=== PATIENT | female | born 1950 | race Caucasian/White ===

== ENCOUNTER 2021-07-03 17:58 | Inpatient (IN) | payer OTHER, SELFPAY ==
[~2021-07-03] VITALS: Ht 165.1 cm; Wt 84.0 kg
--- NOTE | 2021-07-03 18:00 | NUR ---
Pt taken to bed 6
--- NOTE | 2021-07-03 18:03 | NUR ---
Patient being evaluated by physician at bedside.
[2021-07-03 18:07] VITALS: BP 154/92
--- NOTE | 2021-07-03 18:07 | NUR ---
70 y/o F BIBA for abdominal x today. Pain is sharp and 10/10. +N, -V/D. abd is soft and tender to touch. + BS x 4. aox 4 able to make all needs known. all other systems WNL. Denies CP. Pmhx: Fibromyalgia Allergies: Ciprofloxacin, sulfa drugs, PCNs, demerol
--- NOTE | 2021-07-03 18:07 | NUR ---
ERMD at bedside to assess pt
[2021-07-03] MEDS ORDERED: MORPHINE SULFATE 4 MG/ML SYR IVP ONE ×2 (18:10→20:10)
[2021-07-03] MEDS ORDERED: ONDANSETRON 4 MG/2 ML VIAL IVP ONE (18:15)
--- NOTE | 2021-07-03 18:20 | NUR ---
Lab at bedside taking blood
--- NOTE | 2021-07-03 18:22 | NUR ---
Pt signed consent for CT with contrast
[2021-07-03 19:11] LABS: ALBUMIN 3.9 g/dL (3.4-5.0); BASOPHILS # (AUTO) 0.1 K/uL (0.00-0.22); BASOPHILS % (AUTO) 0.4 % (0.0-2.0); BILIRUBIN,DIRECT 0.1 mg/dL (0.0-0.3); EOSINOPHILS # (AUTO) 0.3 K/uL (0-0.4); EOSINOPHILS % (AUTO) 1.6 % (0.0-4.0); HEMATOCRIT 41.7 % (36-48); HEMOGLOBIN 13.7 g/dL (12.0-16.0); LYMPHOCYTES % (AUTO) 12.2 % (20.5-51.1); MEAN CORPUSCULAR HEMOGLOBIN 29 pg (27-31); MEAN CORPUSCULAR HGB CONC 33 g/dL (33-37); MEAN CORPUSCULAR VOLUME 87.2 fL (80-94); MONOCYTES # (AUTO) 0.8 K/uL (0.8-1.0); MONOCYTES % (AUTO) 5.1 % (1.7-9.3); NEUTROPHILS # (AUTO) 13.1 K/uL (1.8-7.7); NEUTROPHILS % (AUTO) 80.7 % (42.2-75.2); PLATELET COUNT (AUTO) 265 K/uL (140-450); RED BLOOD CELL COUNT(AUTO) 4.78 MIL/uL (4.20-5.40); RED CELL DISTRIBUTION WIDTH 16.2 % (11.6-13.7); TOTAL BILIRUBIN 0.4 mg/dL (0.0-1.0); WHITE BLOOD COUNT (AUTO) 16.3 K/uL (4.8-10.8)
--- NOTE | 2021-07-03 19:11 | NUR ---
[facility] called and made aware of CT orders. consent signed
--- NOTE | 2021-07-03 19:25 | NUR ---
Received report from Ai HOBSON for continuity of care
--- NOTE | 2021-07-03 19:25 | NUR ---
Pt report given to Quyen RN. Transfer of care at this time.
--- NOTE | 2021-07-03 19:44 | NUR ---
Patient appears to be resting comfortably in bed- semi fowlers with eyes closed. Vital Signs within normal limits. Respirations even and unlabored. Patient does complain of pain of 8/10--ERMD made aware. Safety measures are in place, placed on dryer feeder, and will continue to monitor patient.
[2021-07-03 20:24] LABS: ANION GAP 16.1 (8-16); CARBON DIOXIDE 25.6 mmol/L (21-32); CHLORIDE 101 mmol/L (98-107); CREATININE 0.9 mg/dL (0.6-1.3); GLUCOSE 140 mg/dL (74-106); POTASSIUM 3.7 mmol/L (3.5-5.1); SODIUM SERUM 139 mmol/L (136-145); UREA NITROGEN, BLOOD 24 mg/dL (7-18)
--- NOTE | 2021-07-03 21:11 | NUR ---
PT TAKEN TO CT
--- NOTE | 2021-07-03 21:26 | NUR ---
PT RETURNED FROM CT
--- NOTE | 2021-07-03 21:33 | NUR ---
patient able to ambulate to the bathroom for urine collection
--- NOTE | 2021-07-03 21:45 | NUR ---
patient unable to provide urine, c/o not being relaxed enough. ERMD- made aware.
--- NOTE | 2021-07-03 21:46 | NUR ---
hooked patient back up on monitors, safety measures are in place, and will continue to monitor patient.
--- NOTE | 2021-07-03 22:19 | NUR ---
Patient tele hold in the ER admited to Ruddy Fox
[2021-07-03] MEDS ORDERED: DEXT 5% /NACL 0.9% 1,000 ML IV SCH (22:20)
--- NOTE | 2021-07-03 22:45 | NUR ---
ATTEMPTED TO PLACE AN NG TUBE-- UNSUCCESSFUL, PATIENT WENT AGAINST RESISTANCE AND HAD THE TUBE COIL INSIDE AND AROUND HER MOUTH.
[2021-07-03] MEDS ORDERED: guaiFENesin DM 200/20 MG-10 ML 10 ML UDC PO PRN (23:00)
[2021-07-03] MEDS ORDERED: HYDROcodone/APAP 7.5/325 MG 1 TAB PO PRN (23:00)
[2021-07-03] MEDS ORDERED: LEVOFLOXACIN 750 MG/D5W PREMIX 150 ML IV SCH (23:05)
[2021-07-03] MEDS ORDERED: hydrALAZINE 20 MG/ML VIAL IVP PRN (23:05)
--- NOTE | 2021-07-03 23:08 | NUR ---
CALLED MD JARQUIN FOR ORDERS FOR ANXIETY-- RECEIVED ORDERS FOR 2MG ATIVAN IVP BEFORE NG INSERTION AND 1 MG OF MORHPINE IVP BEFORE NG INSERTION. AN ADDITIONAL ORDER OF 1MG IVP Q8 PRN FOR ANXIETY AND RESTLESSNESS.
[2021-07-03] MEDS ORDERED: MORPHINE SULFATE 2 MG/ML SYR IVP PRN (23:15)
[2021-07-03 23:37] LABS: CHOL/HDL RATIO 3.3 (1-4.5); FREE T4 (FREE THYROXINE) 0.82 ng/dL (0.76-1.46); MAGNESIUM 2.2 mg/dL (1.8-2.4); PHOSPHORUS 4.3 mg/dL (2.5-4.9); THYROID STIMULATING HORMONE 3.44 uIU/mL (0.34-3.74)
[2021-07-03] MEDS ORDERED: MORPHINE SULFATE 2 MG/ML SYR ONE (23:38)
[2021-07-03] MEDS ORDERED: LORazepam 2 MG/ML VIAL ONE (23:39)
[2021-07-03 23:59] LABS: PROTHROMBIN TIME 9.7 secs (10.8-13.4)
--- NOTE | 2021-07-04 00:24 | NUR ---
attempted to re-insert NG tube-- patient cannot tolerate NG tube. Xray was at bedside and was able to attempt a picture-- saw that ng tube was in the right lung and coiling in the esophagus. Patient saturation went down to 79% on RA. Immediately took out NG tube and put Oxygen to 4L NC bringing patient saturation up to 93%. Immediately called Ruddy Thomas.
--- NOTE | 2021-07-04 00:29 | NUR ---
Called MD Teague about another attempt on NG tube insertion-- notified and said if patient cannot tolerate NG tube then pay close attention to VS and if they become unstable call surgeon for surgery. also reported to avoid morphine as much as possible. Charge nurse and MT notified.
[2021-07-04] MEDS: LEVOFLOXACIN 750 MG/D5W PREMIX 150 ML IV SCH (02:16)
[2021-07-04] MEDS: LORazepam 2 MG/ML VIAL IVP PRN ×3 (02:22→13:49)
[2021-07-04] MEDS: ZOLPIDEM 5 MG TAB PO PRN (02:35)
[2021-07-04] MEDS: DEXT 5% /NACL 0.9% 1,000 ML IV SCH ×3 (03:50→14:00)
[2021-07-04] MEDS ORDERED: VENL37.55 PO (06:31)
[2021-07-04] MEDS ORDERED: POTA10TE30 PO (06:31)
[2021-07-04] MEDS ORDERED: GABA100C PO (06:31)
[2021-07-04] MEDS ORDERED: GABA400C PO (06:31)
[2021-07-04] MEDS ORDERED: FERR325E14 PO (06:31)
[2021-07-04] MEDS ORDERED: DULO60EC1 PO (06:31)
[2021-07-04] MEDS ORDERED: SYN.05 PO (06:31)
[2021-07-04] MEDS ORDERED: VENL150C1 PO (06:31)
[2021-07-04] MEDS ORDERED: FURO-572 PO (06:36)
--- NOTE | 2021-07-04 07:21 | NUR ---
Pt report given to Burak HOBSON. Transfer of care at this time.
--- NOTE | 2021-07-04 07:21 | NUR ---
Report and continuation of care received from JAZLYN Napier.
[2021-07-04 07:22] LABS: ANION GAP 16.9 (8-16); CARBON DIOXIDE 22.7 mmol/L (21-32); CHLORIDE 100 mmol/L (98-107); GLUCOSE 157 mg/dL (74-106); POTASSIUM 4.6 mmol/L (3.5-5.1); SODIUM SERUM 135 mmol/L (136-145); UREA NITROGEN, BLOOD 24 mg/dL (7-18)
[2021-07-04 07:34] LABS: BASOPHILS % (AUTO) 0.2 % (0.0-2.0); EOSINOPHILS # (AUTO) 0.1 K/uL (0-0.4); EOSINOPHILS % (AUTO) 0.3 % (0.0-4.0); HEMATOCRIT 45.1 % (36-48); HEMOGLOBIN 14.7 g/dL (12.0-16.0); LYMPHOCYTES # (AUTO) 0.9 K/uL (2.5-16.5); LYMPHOCYTES % (AUTO) 6.1 % (20.5-51.1); MEAN CORPUSCULAR HEMOGLOBIN 29 pg (27-31); MEAN CORPUSCULAR HGB CONC 33 g/dL (33-37); MEAN CORPUSCULAR VOLUME 88.4 fL (80-94); MONOCYTES # (AUTO) 1.1 K/uL (0.8-1.0); MONOCYTES % (AUTO) 7.6 % (1.7-9.3); NEUTROPHILS # (AUTO) 12.7 K/uL (1.8-7.7); NEUTROPHILS % (AUTO) 85.8 % (42.2-75.2); PLATELET COUNT (AUTO) 295 K/uL (140-450); RED BLOOD CELL COUNT(AUTO) 5.11 MIL/uL (4.20-5.40); RED CELL DISTRIBUTION WIDTH 16.5 % (11.6-13.7); WHITE BLOOD COUNT (AUTO) 14.9 K/uL (4.8-10.8)
--- NOTE | 2021-07-04 07:39 | NUR ---
Patient states unable to void at this time. Will try later.
--- NOTE | 2021-07-04 08:27 | NUR ---
JUAN, PT GRANDDAUGHTER FOR PT UPDATES.
[2021-07-04] MEDS: PANTOPRAZOLE 40 MG TABEC PO SCH (09:25)
--- NOTE | 2021-07-04 09:40 | NUR ---
SPOKE WITH PT FOR PT UPDATES.
--- NOTE | 2021-07-04 09:41 | NUR ---
DR. JARQUIN AT PT BEDSIDE FOR FURTHER UPDATES.
--- NOTE | 2021-07-04 09:44 | NUR ---
Dr. Teague is evaluating patient at bedside
--- NOTE | 2021-07-04 09:45 | NUR ---
Dr. Teague advised to withhold Morphine and [place] medications and give Toradol IVP.
[2021-07-04] MEDS: KETOROLAC 15 MG/ML VIAL IVP PRN ×2 (10:28→17:53)
--- NOTE | 2021-07-04 12:00 | NUR ---
Patient assisted to restroom by wheelchair and cane. Patient unable to void, reports "prolapsed bladder, I need a tranquilizer in order to relax my muscles to pee. They have tried to put in a catheter in the past and they can't get it." Patient refusing straight catheter at this time.
--- NOTE | 2021-07-04 12:14 | NUR ---
Pt placed back onto environmental monitoring technician. New sheets, gown and chucks applied. All pt needs met.
--- NOTE | 2021-07-04 13:37 | NUR ---
GIVEN TELEPHONE ORDER BY DR. JARQUIN TO INPUT ATIVAN 1MG TO BE GIVEN Q6H PRN FOR AGITATION AND ANXIETY.
--- NOTE | 2021-07-04 14:35 | NUR ---
Patient provided with water soluable jelly to moisten lips. Repositioned in bed per request. All pt needs met.
--- NOTE | 2021-07-04 15:29 | NUR ---
Patient laying on Right side in low-fowlers position. shelter monitor and IVF continued. SpO2 97% on 2L NC. Bed locked in lowest position, side rails x 1, call light in reach.
--- NOTE | 2021-07-04 15:35 | NUR ---
Pt states 10/10 pain with nausea. PRN orders to be given. Emesis bag provided
[2021-07-04] MEDS: ONDANSETRON 4 MG/2 ML VIAL IM/IVP PRN ×2 (15:45→23:38)
--- NOTE | 2021-07-04 16:30 | NUR ---
Patient provided with water soluable jelly to moisten lips. All pt needs met. Unable to obtain urine sample at this time. Patient states when she feels anxious, she can not urinate.
--- NOTE | 2021-07-04 17:52 | NUR ---
Patient states she needs to urinate. Patient assisted by WC and cane to restroom and top hat placed on toilet.
--- NOTE | 2021-07-04 18:03 | NUR ---
Patient voided 400mL yellow urine. UA collected, walked to lab and handed to CPT. Emmie
--- NOTE | 2021-07-04 18:05 | NUR ---
Patient placed back onto resident surgeon and IVF. Minor pain relief after Toradol 15mg IVP; states "8.5."
[2021-07-04 18:47] LABS: APPEARANCE,URINE CLEAR (CLEAR); BILIRUBIN,URINE NEGATIVE (NEGATIVE); BLOOD, URINE NEGATIVE (NEGATIVE); COLOR,URINE YELLOW (YELLOW); LEUKOCYTE ESTERASE ,URINE NEGATIVE (NEGATIVE); NITRITE, URINE NEGATIVE (NEGATIVE); PH,URINE 5.5 (5.0-9.0); UGLUCOSE NEGATIVE (NEGATIVE)
[2021-07-04 19:04] LABS: BARBITURATE, URINE NEGATIVE ng/ml (NEG <=200); BENZODIAZEPINE, URINE POSITIVE ng/mL (NEG <=200); CANNABINOID, URINE NEGATIVE ng/mL (NEG <=50); COCAINE, URINE NEGATIVE ng/mL (NEG <=300); OPIATE, URINE POSITIVE ng/mL (NEG <=2000); PHENCYCLIDINE SCREEN,URINE NEGATIVE ng/mL (NEG <=25)
--- NOTE | 2021-07-04 19:18 | NUR ---
Report and transfer of care endorsed to JAZLYN Mcclure.
--- NOTE | 2021-07-04 19:30 | NUR ---
ASSUMED CARE OF PATIENT AT THIS TEIM.
--- NOTE | 2021-07-05 00:09 | NUR ---
REPORT GIVEN TO SRAVANI HOBSON AT THIS TIME. CLEARED FOR TELE TRANSFER TO BED 121A
[2021-07-05 00:30] VITALS: BP 112/71
[2021-07-05] MEDS: DEXT 5% /NACL 0.9% 1,000 ML IV SCH ×4 (03:39→21:11)
[2021-07-05 04:00] VITALS: BP 110/70
[2021-07-05 06:03] LABS: BASOPHILS % (AUTO) 0.1 % (0.0-2.0); EOSINOPHILS # (AUTO) 0.1 K/uL (0-0.4); EOSINOPHILS % (AUTO) 0.8 % (0.0-4.0); HEMATOCRIT 40.4 % (36-48); HEMOGLOBIN 13.1 g/dL (12.0-16.0); LYMPHOCYTES # (AUTO) 1.8 K/uL (2.5-16.5); LYMPHOCYTES % (AUTO) 13.7 % (20.5-51.1); MEAN CORPUSCULAR HEMOGLOBIN 29 pg (27-31); MEAN CORPUSCULAR HGB CONC 33 g/dL (33-37); MEAN CORPUSCULAR VOLUME 88.8 fL (80-94); MONOCYTES # (AUTO) 1.1 K/uL (0.8-1.0); MONOCYTES % (AUTO) 8.3 % (1.7-9.3); NEUTROPHILS # (AUTO) 10.3 K/uL (1.8-7.7); NEUTROPHILS % (AUTO) 77.1 % (42.2-75.2); PLATELET COUNT (AUTO) 300 K/uL (140-450); RED BLOOD CELL COUNT(AUTO) 4.55 MIL/uL (4.20-5.40); RED CELL DISTRIBUTION WIDTH 16.1 % (11.6-13.7); WHITE BLOOD COUNT (AUTO) 13.4 K/uL (4.8-10.8)
--- NOTE | 2021-07-05 06:20 | NUR ---
PATIENT HAS BEEN SCREENED AND CATEGORIZED MODERATE NUTRITION RISK. PATIENT WILL BE SEEN WITHIN 3-5 DAYS OF ADMISSION. 07/06/21 07/08/[address]
[2021-07-05] MEDS: KETOROLAC 15 MG/ML VIAL IVP PRN ×3 (06:35→18:18)
[2021-07-05] MEDS: LORazepam 2 MG/ML VIAL IVP PRN (06:35)
[2021-07-05 06:40] LABS: ANION GAP 13.7 (8-16); CARBON DIOXIDE 25.6 mmol/L (21-32); CHLORIDE 103 mmol/L (98-107); CREATININE 1.3 mg/dL (0.6-1.3); GLUCOSE 116 mg/dL (74-106); POTASSIUM 4.3 mmol/L (3.5-5.1); SODIUM SERUM 138 mmol/L (136-145); UREA NITROGEN, BLOOD 27 mg/dL (7-18)
--- NOTE | 2021-07-05 07:25 | NUR ---
RECEIVED REPORT FROM WOVEN BLIND LOOM TENDER NURSE. PT STABLE. NO S/S OF DISTRESS. BREATHING SYMMETRICAL. NC AT 2L. IV RUNNING PER MD ORDERS. CALL LIGHT IN REACH. ALL SAFETY MEASURES IN PLACE.
[2021-07-05 08:00] VITALS: BP 98/52
[2021-07-05 08:08] LABS: T4 (THYROXINE) 6.8 ug/dL (4.5-12.0)
--- NOTE | 2021-07-05 08:17 | NUR ---
PATIENT EDUCATED ON ORDER FOR NG TUBE. PT STATES SHE HAS STRONG ESOPHAGUS AND ITS IS VERY PAINFUL FOR HER TO HAVE AN NG TUBE. PT REFUSED AT THIS TIME, PT EDUCATED AND NEEDS REINFORCEMENT.
[2021-07-05] MEDS: PANTOPRAZOLE 40 MG TABEC PO SCH (08:19)
--- NOTE | 2021-07-05 09:30 | NUR ---
PATIENT TAKEN TO RADIOLOGY VIA WHEELCHAIR BY TECH. CANE IN POSSESSION. INFORMED PATIENT OF PROCEDURE. PT VERBALIZED UNDERSTANDING.
--- NOTE | 2021-07-05 11:14 | NUR ---
SPOKE TO MARINA ( REGARDING PLAN OF CARE. VERBALIZED UNDERSTANDING AND STATES HE WILL VISIT SOON . PT RESTING IN BED EYES CLOSED BED ALARM NUMERICAL CONTROL DRILL PRESS OPERATOR LIGHT WITHIN REACH . ALL PERSONAL ITEMS WITHIN REACH. ALL SAFETY MEASURES IN PLACE.
[2021-07-05 12:00] VITALS: BP 98/62
[2021-07-05] MEDS: ONDANSETRON 4 MG/2 ML VIAL IM/IVP PRN (12:35)
--- NOTE | 2021-07-05 12:51 | NUR ---
PT REPORTED PAIN AND NAUSEA. PT MEDICATED FOR PAIN AND NAUSEA. EDUCATED ON MEDICATIONS GIVEN. PATIENT VERBALIZED UNDERSTANDING. PT SPOUSE AT BEDSIDE. PT CHANGED INTO YELLOW SOCKS AND GOWN, AND GIVEN ID BRACELET PER PROTOCOL. CALL LIGHT IN REACH. ALL SAFETY MEASURES IN PLACE.
--- NOTE | 2021-07-05 14:50 | NUR ---
PT ROUNDED ON . PT RESTING IN BED ON HER RIGHT SIDE. EYES CLOSED, BREATHING SYMMETRICAL UNLABORED. NEXT TO HER. CALL LIGHT ON , PATIENTS BELONGINGS WITHIN REACH . ALL SAFETY MEASURES ARE IN PLACE.
--- NOTE | 2021-07-05 15:05 | NUR ---
DC PLANNING: AYAN SPOKE WITH THE PATIENT AND HER ABRIL AT BEDSIDE. CONFIRMED THEIR ADDRESS AND PHONE NUMBER PER THE FACE SHEET. THE PATIENT LIVES IN A SINGLE STORY HOUSE WITH HER ABRIL WHO IS HER PRIMARY CAREGIVER. THE PATIENT HAS A H/O LUPUS AND HIP AND KNEE REPLACEMENT. SHE SEES HER PCP ON AN NEEDED BASIS AND SEES HER PAIN MANAGEMENT MD DR RICHARDS EVERY 3 MONTHS. SHE REQUIRES ASSISTANCE WITH BATHING AND DRESSING AND IS ABLE TO WALK SHORT DISTANCES USING A CANE. SHE ALSO HAS A 3 IN 1 COMMODE, AND HAS BEEN AT [facility] FOR REHAB AFTER HER KNEE SURGERY. THE PATIENT HAS NOT HAD HOME HEALTH IN THE PAST. SHE IS IN THE PROCESS OF HAVING AN ABDOMINAL XRAY SERIES WITH SMALL BOWEL FOLLOW THROUGH TO DETERMINE IF THE PATIENT HAS AN SBO VS ILEUS. DC PLAN WILL BE DETERMINED AFTER DIAGNOSTIC W/U IS COMPLETED. AYAN WILL FOLLOW FOR NEEDS. Addendum: 07/11/21 at 1419 by Gini Vega CM DC PLANNING: THE PATIENT IS S/P SURGERY FOR SBO, REMAINS WITH NIRANJAN DRAIN, O2 AT 10 L AND LEUKOCYTOSIS. ID CONSULT WITH DR GRAVES, THE PATIENT WAS STARTED ON MEREM IV. ORDER FOR LTAC EVALUATION RECEIVED, AYAN CALLED THE PATIENTS HEATHER TO DISCUSS. HE STATES HE'S IN AGREEMENT AND WANTS CM TO SPEAK WITH HIS ONCE A DECISION IS MADE BY LTAC AND INSURANCE TO TRANSFER PATIENT. REFERRAL FAXED TO [facility], AYAN WILL FOLLOW FOR NEEDS. Addendum: 07/12/21 at 1550 by Tami Isaac RN DC PLANNING: CALLED [facility] [phone] SPOKE WITH ORBERT Parada CASE DAMAGE ASSESSOR, PROVIDE THE AUTH FOR [facility] [id number] AND STATED NO AUTH NEEDED FOR TRANSPORT. CALLED ALISSA AND PROVIDE THE AUTH # FOR [facility]. AWAITING FOR BED. CM TO FOLLOW Addendum: 07/12/21 at 1636 by Tami Isaac RN DC PLANNING: ARRANGE TRANSPORT WITH [facility] PENDING ROOM NUMBER AT [facility] PLACE IT WILL CALL. PLS CALL [facility] [phone] OR [phone].CM TO FOLLOW Addendum: 07/13/21 at 1624 by Gini Vega CM DC PLANNING: AYAN FOLLOWED UP WITH ALISSA FROM [facility], NO BEDS AVAILABLE YET. AYAN ALSO FAXED UPDATED CLINICALS TO [facility] INS[facility]ANCE PER THEIR REQUEST. THE PATIENTS HEATHER WAS UPDATED ON KINDREDS LACK OF BEDS TODAY. AYAN WILL FOLLOW FOR NEEDS. Addendum: 07/14/21 at 1253 by Gini Vega CM DC PLANNING: AYAN RECEIVED A CALL FROM MATT [facility] HEALTH COORDINATOR AT [facility]. MATT OFFERED A PEER TO PEER CONVERSATION REGARDING APPROVAL FOR THE PATIENT TO GO TO LTAC, AYAN ENDOSED THAT AN AUTH NUMBER HAS BEEN RECEIVED. MATT STATES THAT SHE WILL NEED TO ESCALATE THE CASE THE AUTH NUMBER WE HAVE IS NOT THE NUMBER ATTACHED TO THE PATIENTS CASE, PEER TO PEER PHONE NUMBER IS [phone] JENNIFER SLADE. MATT'S NUMBER IS [phone], SHE WOULD LIKE TO ESCALATE CASE BEFORE PEER TO PEER IS INITIATED TO SEE IF IT IS NECESSARY. AYAN ALSO MET WITH THE PATIENT AND HER HEATHER AT BEDSIDE TO DISCUSS [facility] PLACEMENT. THE PATIENT IS VERY EMOTIONAL AND WANTS TO DC HOME, CM AND EXPLAINED THAT SHE COULD NOT BE CARED FOR APPROPRIATELY AT HOME EVEN WITH A MANAGER STORY RETAIL AGENT. THE PATIENT ACKNOWLEDGES THAT ALISSA FROM [facility] SPOKE TO HER IN PERSON, AND ULTIMATELY AGREED TO GO TO [facility] SHE UNDERSTANDS THAT IT IS THE SETTING THAT CAN MANAGE HER CURRENT HEALTH ISSUES AND CARE. AYAN WILL ASK ALISSA TO VISIT THE PATIENT AGAIN PER HER REQUEST BUT SHE WOULD LIKE TO WAIT UNTIL SATURDAY IF SHE DOESN'T DC OVER THE WEEKEND. CM WILL FOLLOW FOR NEEDS. Addendum: 07/14/21 at 1405 by Gini Vega DC PLANNING: AYAN RECEIVED A CALL FROM MATT AT [facility], STATES A PEER TO PEER REVIEW IS NEEDED FOR LTAC AUTHORIZATION. HAS UNTIL 12 NOON ON SATURDAY THE TO CALL THE [facility] , REFERENCE # IS [id number], PRIOR REFERENCE NUMBERS HAVE BEEN CANCELLED BY [facility]. HOSPITALIST MADE AWARE AND STATES HE WILL CALL FOR PEER TO PEER NOW. CM WILL FOLLOW FOR NEEDS. Addendum: 07/14/21 at 1514 by Gini Vega DC PLANNING: DR CALHOUN SPOKE WITH DR JENNIFER SLADE AT [facility] WHO DENIED LTAC ADMISSION FOR THE PATIENT. AYAN THEN SPOKE WITH PETE AT [facility] AND ASKED FOR SNF OPTIONS AND AN EXPLANATION OF THE AUTHORIZATION PROCESS. PTEE STATES THAT CLINICALS NEED TO BE FAXED TO [employer] AT [phone], AND THAT REQUEST WILL NOT BE REVIEWED UNTIL SATURDAY. SNF OPTIONS ARE [facility], [facility], [facility], [facility], [facility], [facility], [facility], [facility], [facility] AND [facility]. AYAN THEN SPOKE WITH THE ATTENDING MD DR. CALHOUN TO UPDATE HIM ON ABOVE. AYAN SPOKE WITH THE PATIENTS WHO STATES THAT THE PATIENT WILL NOT AGREE TO SNF, PLAN IS TO DC HOME WITH HOME HEALTH FOR P.T. AND WOUND CARE. THE COUPLES GRANDDAUGHTER LIVES NEXT DOOR TO THEM AND WILL BE ABLE TO HELP WITH THE PATIENTS CARE. AYAN WILL FOLLOW FOR NEEDS. Addendum: 07/14/21 at 1634 by Gini Vega CM DC PLANNING: CLINICAL PACKET FAXED TO [facility] WITH ORDERS FOR SNF PLACEMENT VERSUS HOME HEALTH. AYAN WILL FOLLOW FOR NEEDS. Addendum: 07/17/21 at 1116 by Gini Vega CM DC PLANNING: AYAN SPOKE WITH THE PATIENTS THIS MORNING, HE IS IN AGREEMENT WITH THE PATIENT DC'ING HOME WITH HOME HEALTH. AYAN ENDORSED THAT SHE SPOKE WITH [facility] THIS MORNING TO GET A LIST OF CONTRACTED HOME HEALTH AGENCIES, HEATHER IS IN AGREEMENT WITH SENDING TO [facility] [employer] [facility] THE PATIENT HAS NO PRIOR HISTORY OF USING ANOTHER AGENCY. REFERRAL SENT TO [facility] FOR SAFETY EVAL AND PHYSICAL THERAPY. AYAN ALSO ENDORSED TO HER HEATHER THAT THE PATIENT MIGHT DC TODAY. AYAN WILL FOLLOW FOR NEEDS.
--- NOTE | 2021-07-05 15:54 | NUR ---
PATIENT REPOSITIONED AND GIVEN ICE PACKS. PT RESTING IN BED STAND BY ASSISTANCE. ALL SAFETY MEASURE ARE IN PLACE.
[2021-07-05 16:00] VITALS: BP 108/82
--- NOTE | 2021-07-05 17:50 | NUR ---
ASSISTED PT TO RESTROOM. PATIENT HAS UNSTEADY GAIT. PT DID NOT VOID. OFFERED BEDPAN, PT REFUSED. OFFERED TO BRING BEDSIDE COMMODE FOR NEXT ATTEMPT AT VOIDING. ASSISTED PT BACK TO BED. CALL LIGHT IN REACH. ALL SAFETY MEASURES IN PLACE.
--- NOTE | 2021-07-05 18:20 | NUR ---
PATIENT EDUCATED THAT PATIENT MUST VOID IN ORDER TO COMPLETE SMALL BOWEL THROUGH , TOILET TRAINING COMPLETE BUT WAS UNSUCCESSFUL
--- NOTE | 2021-07-05 18:30 | NUR ---
PATIENT COMPLAINS OF PAIN , PRN MEDICATION GIVEN , PT GIVEN ICE AND REPOSITIONING . PT STATES SHE IS ANXIOUS BREATHING EXERCISES PERFORMED AND EDUCATED TO CALL FOR ANYTHING\. CALL LIGHT WITHIN REACH
--- NOTE | 2021-07-05 19:37 | NUR ---
PT ENDORSED TO STUDIO ASSOCIATE NURSE. SPOUSE AT BEDSIDE. PT STABLE. PATIENT STATED REDUCED PAIN AND NAUSEA AFTER THERAPEUTIC MEASURES. CALL LIGHT IN REACH. ALL SAFETY MEASURES IN PLACE.
[2021-07-05 20:00] VITALS: BP 139/85
--- NOTE | 2021-07-05 21:00 | NUR ---
Attempted to assist patient to bedside commode so she can void but was unsuccessful. Provided Patient education on the need to void but patient stated it was because she was just anxious and would like her Ativan IV PUSH. Ativan was then provided to the patient. Provided further education on the possibility of strait cath but patient refused saying she needed more time.
[2021-07-05] MEDS: metroNIDAZOLE 500 MG/NS PREMIX 100 ML IV SCH (21:05)
--- NOTE | 2021-07-05 23:30 | NUR ---
Contacted doctor BRITTON about patient problem with urination and the need for the radiological procedure that could not be completed to the patient's full bladder. MD gave an order for a strait cath to empty the bladder will follow order.
[2021-07-06] VITALS (9 sets, daily range): BP systolic 98–136; BP diastolic 54–85
--- NOTE | 2021-07-06 | NUR ---
Patient had x2 episodes of emesis within a 30 minute period. Patient had an output 700ml of coffee brown emesis. Patient was promptly clean and given a zofran for nausea and vomiting. Patient is having no other s/s of distress and V/S are stable at this time. Will continue to monitor. Discussed with the patient Order that was provided by doctor JARQUIN about straight Cath procedure but patient stated not right now. Risk and benefits were explained and patient verbalized understanding.
[2021-07-06] MEDS: ONDANSETRON 4 MG/2 ML VIAL IM/IVP PRN ×3 (00:05→09:50)
--- NOTE | 2021-07-06 01:30 | NUR ---
Patient is currently resting with no further episodes of N/V at this time, Patient has still not voided.
[2021-07-06] MEDS: LEVOFLOXACIN 750 MG/D5W PREMIX 150 ML IV SCH (02:13)
--- NOTE | 2021-07-06 02:30 | NUR ---
Administered scheduled ABX at this time and patient was experiencing N/V but no emesis was present. Ask the patient if she had voided and patient stated that she went a little bit. Ask the patient about strait cath again and patient refused, stating that it was because she had not had anything to drink. education was provided on the IV fluid being administered continuously and the effects on the system and risk and benefits patient still refused. Will continue to observe.
--- NOTE | 2021-07-06 03:15 | NUR ---
Patient stated that they were experiencing anxiety and requested Ativan. Some nausea was still present no emesis at this time.
[2021-07-06] MEDS: LORazepam 2 MG/ML VIAL IVP PRN ×2 (03:22→11:21)
--- NOTE | 2021-07-06 04:00 | NUR ---
Patient had a urinary output of 600cc in the bedside commode. Nurse measured amount for consistency. Patient continues to have N/V will continue to monitor.
[2021-07-06 06:12] LABS: ANION GAP 13.4 (8-16); CARBON DIOXIDE 25.4 mmol/L (21-32); CHLORIDE 104 mmol/L (98-107); CREATININE 1.2 mg/dL (0.6-1.3); GLUCOSE 133 mg/dL (74-106); POTASSIUM 3.8 mmol/L (3.5-5.1); SODIUM SERUM 139 mmol/L (136-145); UREA NITROGEN, BLOOD 31 mg/dL (7-18)
[2021-07-06 06:18] LABS: BASOPHILS % (AUTO) 0.2 % (0.0-2.0); EOSINOPHILS % (AUTO) 0.1 % (0.0-4.0); HEMATOCRIT 39.9 % (36-48); HEMOGLOBIN 12.9 g/dL (12.0-16.0); LYMPHOCYTES # (AUTO) 1.5 K/uL (2.5-16.5); LYMPHOCYTES % (AUTO) 11.7 % (20.5-51.1); MEAN CORPUSCULAR HEMOGLOBIN 28 pg (27-31); MEAN CORPUSCULAR HGB CONC 32 g/dL (33-37); MEAN CORPUSCULAR VOLUME 87.1 fL (80-94); MONOCYTES % (AUTO) 7.7 % (1.7-9.3); NEUTROPHILS # (AUTO) 10.6 K/uL (1.8-7.7); NEUTROPHILS % (AUTO) 80.3 % (42.2-75.2); PLATELET COUNT (AUTO) 277 K/uL (140-450); RED BLOOD CELL COUNT(AUTO) 4.58 MIL/uL (4.20-5.40); RED CELL DISTRIBUTION WIDTH 16.2 % (11.6-13.7); WHITE BLOOD COUNT (AUTO) 13.2 K/uL (4.8-10.8)
--- NOTE | 2021-07-06 06:30 | NUR ---
Patient had a depressive crying episode, patient expressed that she was extremely sad because her best friend had a few months prior. Nurse stayed in the room with the resident having her express her feelings until she felt some relief. Will endorse to am shift schedule for continuity of care.
[2021-07-06] MEDS: metroNIDAZOLE 500 MG/NS PREMIX 100 ML IV SCH ×3 (07:52→20:27)
[2021-07-06] MEDS: KETOROLAC 15 MG/ML VIAL IVP PRN (07:54)
--- NOTE | 2021-07-06 08:27 | NUR ---
Patient awake, alert and able to verbalize needs. Flat affect, sad and complaining of adbominal discomfort. Patient resting in bed with safety co measures in place.
[2021-07-06] MEDS: PANTOPRAZOLE 40 MG TABEC PO SCH (08:50)
[2021-07-06] MEDS: DEXT 5% /NACL 0.9% 1,000 ML IV SCH (13:16)
[2021-07-06] MEDS ORDERED: LIDOCAINE 1% 500 MG/50 ML VIAL ONE (15:28)
[2021-07-06] MEDS ORDERED: BUPIVACAINE-MPF 0.25% 30 ML VIAL INJ ONE (15:28)
--- NOTE | 2021-07-06 15:41 | NUR ---
Patient off the unit for surgery.
[2021-07-06] MEDS ORDERED: ceFAZolin 1,000 MG VIAL ONE ×2 (16:01→16:05)
[2021-07-06] MEDS ORDERED: DESFLURANE 240 ML BTL INH ONE (16:24)
[2021-07-06] MEDS ORDERED: fentaNYL citrate 0.05 MG/ML VIAL ONE (17:00)
[2021-07-06] MEDS ORDERED: HYDROmorphone PFS 2 MG/ML SYR ONE (17:09)
[2021-07-06] MEDS ORDERED: SUGAMMADEX SODIUM 200 MG/2 ML VIAL IV ONE ×2 (17:31→18:26)
[2021-07-06] MEDS ORDERED: DEXAMETHASONE 4 MG/ML VIAL ONE (17:57)
[2021-07-06] MEDS ORDERED: ROCURONIUM 50 MG/5 ML VIAL IV ONE (17:57)
[2021-07-06] MEDS ORDERED: ONDANSETRON 4 MG/2 ML VIAL ONE (17:57)
[2021-07-06] MEDS ORDERED: PROPOFOL 200 MG/20 ML VIAL IV ONE (17:57)
[2021-07-06] MEDS ORDERED: KETOROLAC 30 MG/ML VIAL ONE (17:58)
--- NOTE | 2021-07-06 18:15 | NUR ---
RECEIVED PT FROM OR. 52 Y/O FEMALE WITH A CC OF ABD PAIN AND N/V. ADMITTING DX OF SBO. S/P LAPAROSCOPY WITH LYSIS OF ADHESIONS. PT AWAKE AND VERBALLY RESPONSIVE, ABLE TO RESPOND TO SIMPLE QUESTIONS. NO C/O PAIN, NO SOB ON 15L NRM. WITH IC LAC 18G RUNNING D5 1/2NS 125CC/HR. PLACED CORTEZ HUGGER
[2021-07-06] MEDS: DEXT 5% / NACL 0.45% 1,000 ML IV SCH (18:33)
[2021-07-06] MEDS: HYDROmorphone 1 MG/ML AMP IVP PRN (23:14)
[2021-07-07] VITALS (32 sets, daily range): BP systolic 75–143; BP diastolic 34–69
[2021-07-07] MEDS ORDERED: NACL 0.9% 1,000 ML IV SCH (04:10)
[2021-07-07] MEDS ORDERED: NOREPINEPHRINE 4 MG in DEXTROSE 5% 250 ML IV PRN (04:10)
[2021-07-07] MEDS ORDERED: NOREPINEPHRINE 4 MG/4 ML VIAL IV ONE (04:52)
[2021-07-07] MEDS: DEXT 5% / NACL 0.45% 1,000 ML IV SCH ×3 (05:08→18:31)
[2021-07-07] MEDS: metroNIDAZOLE 500 MG/NS PREMIX 100 ML IV SCH ×3 (05:15→20:25)
[2021-07-07 05:57] LABS: BASOPHILS % (AUTO) 0.1 % (0.0-2.0); EOSINOPHILS % (AUTO) 0.1 % (0.0-4.0); HEMATOCRIT 34.7 % (36-48); HEMOGLOBIN 11.4 g/dL (12.0-16.0); LYMPHOCYTES # (AUTO) 0.6 K/uL (2.5-16.5); LYMPHOCYTES % (AUTO) 10.3 % (20.5-51.1); MEAN CORPUSCULAR HEMOGLOBIN 29 pg (27-31); MEAN CORPUSCULAR HGB CONC 33 g/dL (33-37); MEAN CORPUSCULAR VOLUME 89.5 fL (80-94); MONOCYTES # (AUTO) 0.3 K/uL (0.8-1.0); MONOCYTES % (AUTO) 5.2 % (1.7-9.3); NEUTROPHILS # (AUTO) 4.5 K/uL (1.8-7.7); NEUTROPHILS % (AUTO) 84.3 % (42.2-75.2); PLATELET COUNT (AUTO) 150 K/uL (140-450); RED BLOOD CELL COUNT(AUTO) 3.88 MIL/uL (4.20-5.40); RED CELL DISTRIBUTION WIDTH 16.2 % (11.6-13.7); WHITE BLOOD COUNT (AUTO) 5.4 K/uL (4.8-10.8)
[2021-07-07] MEDS: LORazepam 2 MG/ML VIAL IVP PRN ×2 (06:03→20:25)
[2021-07-07 06:06] LABS: ANION GAP 12.3 (8-16); CHLORIDE 109 mmol/L (98-107); CREATININE 1.2 mg/dL (0.6-1.3); GLUCOSE 108 mg/dL (74-106); POTASSIUM 4.3 mmol/L (3.5-5.1); SODIUM SERUM 141 mmol/L (136-145); UREA NITROGEN, BLOOD 34 mg/dL (7-18)
--- NOTE | 2021-07-07 07:10 | NUR ---
Assumed pt care report received from Alycia HOBSON met pt awake alert oriented x4, had abdominal surgery 07/[address] Sujata Krause, exp/lap left lower abdominal quadrant with NIRANJAN drain, mentioned pain 02/06 on the rt side abdomen, all incision sites intact vitals signs stable with ongoing levophed gtt. pt education on care plan, pain management, medications and she verbalized understanding.
--- NOTE | 2021-07-07 08:10 | NUR ---
LOC AWAKE AND ALERT VERBALLY RESPONSIVE GOOD CHEST RISE SATURATION 95% ON SUPPLEMENTAL OXYGEN AT 15 LPM AI NON REBREATHER REMOVED FOR OXYGEN DEVICE PLACED ON A BUBBLE HUMIDIFIED OXYGEN AT 10 LPM VIA NASAL CANNULA FOR BREAKFAST JANEL CALL/MILITARY LAWYER NOTIFIED
--- NOTE | 2021-07-07 08:30 | NUR ---
Dr Krause surgeon rounds at the bedside updates on pt's condition NIRANJAN, NGT output labs results, met pt while she was eating clear liquid breakfast, order received to keep pt NPO, D/C Levophed, Tylenol 500mg po a/c, h/s, LR 500CC bolus IV stat and to keep NGT in place. Oxygenation changed from Non rebreather to 10ltres nasal canula.
[2021-07-07] MEDS ORDERED: LACTATED RINGERS 500 ML IV SCH (08:40)
--- NOTE | 2021-07-07 09:00 | NUR ---
PT. WITH LOW MALISSA SCALE AT RISK, CONTINUE TO FOLLOW PRESSURE INJURY PREVENTION INTERVENTIONS. -TURN AND REPOSITION PATIENT Q 2H -ASSESS AND MONITOR SKIN CONDITION DURING POSITION CHANGE -OFFLOAD BILATERAL HEELS BY PLACING PILLOWS UNDER CALVES AT ALL TIMES, UNLESS OTHERWISE CONTRAINDICATED -PRESSURE REDISTRIBUTION SURFACE AND OFFLOADING SACRALCOCCYX -KEEP SKIN CLEAN AND DRY AT ALL TIMES.
[2021-07-07] MEDS: ONDANSETRON 4 MG/2 ML VIAL IM/IVP PRN (09:15)
[2021-07-07] MEDS: PANTOPRAZOLE 40 MG INJ VIAL IVP SCH (09:16)
--- NOTE | 2021-07-07 09:25 | NUR ---
Protonix changed to IVP Dr Subramanian. Incentive spirometry teaching splint abdomen to drease discomfort, at the bedside, poor patient's participation not up to 500 said she does not want to cough because it hurts, more support encouragement, persuasion, education ot take deep breadth and cough. .
--- NOTE | 2021-07-07 10:00 | NUR ---
Dr Subramanian rounds updates at the bedside no new order received also mentioned that pt is NPO except for meds ice chips ok by Dr Krause.
[2021-07-07] MEDS: HYDROmorphone 1 MG/ML AMP IVP PRN ×2 (11:02→15:28)
--- NOTE | 2021-07-07 11:09 | NUR ---
07/07/21 RD INITIAL ASSESSMENT COMPLETED PLEASE REFER TO NUTRITION ASSESSMENT UNDER CARE ACTIVITY FOR ESTIMATED NUTRITIONAL NEEDS. 1. CONTINUE NPO MEDICALLY NECESSARY 2. RECOMMEND TPN IF PT WILL BE NPO >5 DAYS 3. IF/WHEN MEDICALLY CLEARED FOR PO INTAKE CONSIDER STARTING ON CLEAR LIQUIDS AND GRADUALLY ADVANCING TO SOFT DIET 4. RD TO FOLLOW-UP 2-3 DAYS, HIGH RISK STEWART GOLD, ROMAN
--- NOTE | 2021-07-07 11:42 | NUR ---
@1102 Assisted pt to the bedside commode as per her request because she could not void in bed vera, she tolerated with minimal discomfort no urine either and assisted back to bed @1112 Dr Camargo was here consult by Dr Subramanian updates on pt's condition at bedside, mentioned to MD that Levophed d/c by Dr Krause, NPO and she could not void, also hx of bladder prolapse order received from bladder scanned and straight cath PRN @1142 pt's called for updates over the phone on pt's condition and ongoing treatments.
--- NOTE | 2021-07-07 13:15 | NUR ---
pt's at the bedside for support
--- NOTE | 2021-07-07 16:10 | NUR ---
pt unable to void assisted to bedside commode so also in bed, bladder scanned result >470, straight catheterization done nurses assist total out was 500 pt tolerated with mild discomfort, vaginal area redness, noted painful to touch cleaned with CHG and providone pt tolerated well with mild discomfort.
[2021-07-07] MEDS: ACETAMINOPHEN EXTRA STRENGTH 500 MG TAB PO SCH ×2 (16:37→20:25)
--- NOTE | 2021-07-07 16:55 | NUR ---
Pain well palliated with medications IV Dilaudid 1mg given twice, started on Tylenol 500mg tab and pt verbalized relief and tolerable.
--- NOTE | 2021-07-07 19:19 | NUR ---
RECEIVED PATIENT FROM AM SHIFT NURSE FOR CONTINUITY OF CARE. ALERT AND ABLE TO MAKE NEEDS KNOWN. RESPIRATIONS EVEN, UNLABORED. CONTINUES ON O2 8L VIA NC, O2SAT 94%. S1/S2 AUSCULTATED. NO C/O PAIN. SKIN WARM, DRY. SALINE LOCK TO LEFT HAND 22G PATENT/INTACT. IV SITE LEFT AC 18G PATENT/INTACT, INFUSING FLUIDS WELL. NGT TO RIGHT NARE PATENT/INTACT, CONTINUES ON LOW SUCTION. DARK BROWN DRAINAGE NOTED. ABDOMEN SOFT, TENDER, NONDISTENDED. BOWEL SOUNDS HYPOACTIVE x4 QUADRANTS. LEFT NIRANJAN DRAIN NOTED WITH RED DRAINAGE NOTED. PATIENT IS CONTINENT OF B/B. PLAN OF CARE DISCUSSED. SAFETY PRECAUTIONS IN PLACE.
--- NOTE | 2021-07-07 19:19 | NUR ---
Change of shift report to Lalitha HOBSON as at this time pt awake alert vitals signs stable no changes in care plan and condition. pt's at the bedside .
--- NOTE | 2021-07-07 21:30 | NUR ---
DUE MEDS GIVEN. NO S/S RESPIRATORY DISTRESS. NO C/O PAIN. PATIENT IS CLEAN/DRY.
--- NOTE | 2021-07-07 23:30 | NUR ---
PATIENT TURNED AND REPOSITIONED. NO S/S RESPIRATORY DISTRESS. NO C/O PAIN. PATIENT CLEAN/DRY.
[2021-07-08] VITALS (13 sets, daily range): BP systolic 86–136; BP diastolic 45–63
--- NOTE | 2021-07-08 01:00 | NUR ---
PATIENT SLEEPING WELL. NO S/S RESPIRATORY DISTRESS. PATIENT CLEAN/DRY.
[2021-07-08] MEDS: DEXT 5% / NACL 0.45% 1,000 ML IV SCH ×3 (01:42→17:38)
[2021-07-08] MEDS: LEVOFLOXACIN 750 MG/D5W PREMIX 150 ML IV SCH (01:53)
--- NOTE | 2021-07-08 03:00 | NUR ---
PATIENT IS ASLEEP. NO S/S RESPIRATORY DISTRESS. PATIENT IS CLEAN/DRY.
[2021-07-08] MEDS: metroNIDAZOLE 500 MG/NS PREMIX 100 ML IV SCH ×3 (04:47→20:45)
[2021-07-08 05:09] LABS: BASOPHILS % (AUTO) 0.1 % (0.0-2.0); EOSINOPHILS # (AUTO) 0.2 K/uL (0-0.4); EOSINOPHILS % (AUTO) 1.9 % (0.0-4.0); HEMATOCRIT 35.1 % (36-48); HEMOGLOBIN 11.2 g/dL (12.0-16.0); LYMPHOCYTES # (AUTO) 1.2 K/uL (2.5-16.5); LYMPHOCYTES % (AUTO) 9.6 % (20.5-51.1); MEAN CORPUSCULAR HEMOGLOBIN 29 pg (27-31); MEAN CORPUSCULAR HGB CONC 32 g/dL (33-37); MEAN CORPUSCULAR VOLUME 89.9 fL (80-94); MONOCYTES # (AUTO) 0.4 K/uL (0.8-1.0); MONOCYTES % (AUTO) 3.3 % (1.7-9.3); NEUTROPHILS # (AUTO) 10.3 K/uL (1.8-7.7); NEUTROPHILS % (AUTO) 85.1 % (42.2-75.2); PLATELET COUNT (AUTO) 163 K/uL (140-450); RED BLOOD CELL COUNT(AUTO) 3.91 MIL/uL (4.20-5.40); RED CELL DISTRIBUTION WIDTH 16.5 % (11.6-13.7); WHITE BLOOD COUNT (AUTO) 12.1 K/uL (4.8-10.8)
--- NOTE | 2021-07-08 05:30 | NUR ---
ASSISTED PATIENT TO BEDSIDE COMMODE TO URINATE BUT PATIENT WAS UNABLE. STRAIGHT CATHETER ADMINISTERED WITH 900 ML OF TEA COLORED URINE OBTAINED. PATIENT TOLERATED PROCEDURE WELL.
[2021-07-08 05:36] LABS: ANION GAP 11.8 (8-16); CARBON DIOXIDE 24.6 mmol/L (21-32); CHLORIDE 108 mmol/L (98-107); GLUCOSE 96 mg/dL (74-106); POTASSIUM 3.4 mmol/L (3.5-5.1); SODIUM SERUM 141 mmol/L (136-145); UREA NITROGEN, BLOOD 23 mg/dL (7-18)
--- NOTE | 2021-07-08 07:06 | NUR ---
ENDORSED PATIENT TO AM SHIFT NURSE FOR CONTINUITY OF CARE.
--- NOTE | 2021-07-08 08:12 | NUR ---
LOC AWAKE AND ALERT VERBALLY RESPONSIVE GOOD CHEST RISE AIRWAY PATENT BREATH SOUNDS DECREASE BILATERAL RECEIVED ON SUPPLEMENTAL OXYGEN AT 8 LPM VIA BUBBLE HUMIDIFIER WITH A CURAPLEX NASAL CANNULA SATURATION 90%-91% ENCOURAGED PATIENT TO USE THE INCENTIVE SPIROMETER EVERY 1-2 HOURS WHILE AWAKE
[2021-07-08] MEDS: ACETAMINOPHEN EXTRA STRENGTH 500 MG TAB PO SCH ×4 (08:23→20:45)
[2021-07-08] MEDS: PANTOPRAZOLE 40 MG INJ VIAL IVP SCH (08:23)
[2021-07-08] MEDS: HYDROmorphone 1 MG/ML AMP IVP PRN (08:24)
[2021-07-08] MEDS: ONDANSETRON 4 MG/2 ML VIAL IM/IVP PRN ×2 (11:49→19:41)
--- NOTE | 2021-07-08 12:00 | NUR ---
NGT D/C INTACT. PT TOLERATED WELL. PT GIVEN LUNCH TRAY, TOLERATING WITHOUT NAUSEA.
[2021-07-08] MEDS: HYDROcodone/APAP 5/325 MG 1 TAB TAB PO PRN ×2 (14:01→20:46)
--- NOTE | 2021-07-08 14:55 | NUR ---
RECEIVED PATIENT REPORT FROM ICU NURSE FOR CONTINUITY OF CARE. PT IS AOX4, ABLE TO MAKE NEEDS KNOWN. RESPIRATIONS EVEN AND UNLABORED. ON 8L NC WITH HUMIDIFIER. SKIN IS WARM, DRY, AND NON-INTACT. S/P BOWEL RESECTION 07/06. NIRANJAN DRAINAGE IN PLACE. NOTED SEROSANGINEOUS DRAINAGE. DENIES PAIN. IV SITE ON LH 22G AND LAC 18 G. INTACT AND PATENT. IVF INFUSING WELL. PLAN OF CARE DISCUSSED. SAFETY PRECAUTIONS IN PLACE. WILL CONTINUE TO MONITOR.
[2021-07-08] MEDS: LORazepam 2 MG/ML VIAL IVP PRN (15:29)
--- NOTE | 2021-07-08 17:30 | NUR ---
O2 DESATURATION TO 86%. TITRATED TO 14 L NC W/ HUMIDIFIER. 02 SATURATION AT 93%. WILL CONTINUE TO MONITOR.
--- NOTE | 2021-07-08 18:30 | NUR ---
CHECKED ON PATIENT. PATIENT IS STABLE. NO DISTRESS NOTED. WILL CONTINUE TO MONITOR.
--- NOTE | 2021-07-08 19:38 | NUR ---
ENDORSED TO PHARMACIST CRITICAL CARE NURSE FOR CONTINUITY OF CARE. PT IS STABLE.
--- NOTE | 2021-07-08 19:40 | NUR ---
RECEIVED REPORT FROM HUMERA HOBSON FOR CONTINUITY OF CARE. PT SITTING UP AAOX3. NO APPARENT S/S OF ACUTE DISTRESS. BREATHING EVEN AND UNLABORED ON 14L O2 WITH O2 SAT OF 98%. NO C/O CP, SOB OR PAIN. L AC AND L HAND 22G INTACT/PATENT WITH D5 1/2NS@125ML/HR. LLQ NIRANJAN DRAIN INTACT/PATENT WITH SEROSANG OUTPUT. POC AND WHITE COMMUNICATION BOARD UPDATED. BED IN LOW/LOCKED POSITION. CALL LIGHT WITHIN REACH. PT ENCOURAGED TO CALL FOR ANY NEEDS/ASSISTANCE. WILL CONTINUE TO MONITOR.
[2021-07-08] MEDS: POTASSIUM CHLORIDE 10 MEQ TABER PO PRN (19:41)
[2021-07-08] MEDS ORDERED: SUCRALFATE 1 GM TAB PO SCH (20:20)
[2021-07-08] MEDS ORDERED: PANTOPRAZOLE 40 MG INJ VIAL IVP SCH (20:20)
--- NOTE | 2021-07-08 20:27 | NUR ---
PT C/O HEART BURN. RECEIVED ORDERS FROM DR. JARQUIN, WILL INPUT AND CARRY OUT.
--- NOTE | 2021-07-08 21:30 | NUR ---
ATIVAN GIVEN PER EMAR AT THIS TIME.
[2021-07-09] VITALS: BP 108/41
[2021-07-09] MEDS: DEXT 5% / NACL 0.45% 1,000 ML IV SCH ×3 (01:55→16:17)
[2021-07-09 04:00] VITALS: BP 125/62
[2021-07-09] MEDS: LORazepam 2 MG/ML VIAL IVP PRN ×4 (04:50→20:07)
--- NOTE | 2021-07-09 05:02 | NUR ---
PT REQUESTING ATIVAN, GIVEN NOW PER EMAR.
[2021-07-09] MEDS: metroNIDAZOLE 500 MG/NS PREMIX 100 ML IV SCH ×3 (05:03→21:06)
[2021-07-09 05:27] LABS: BASOPHILS % (AUTO) 0.1 % (0.0-2.0); EOSINOPHILS # (AUTO) 0.3 K/uL (0-0.4); EOSINOPHILS % (AUTO) 1.8 % (0.0-4.0); HEMATOCRIT 35.5 % (36-48); HEMOGLOBIN 11.4 g/dL (12.0-16.0); LYMPHOCYTES # (AUTO) 1.4 K/uL (2.5-16.5); LYMPHOCYTES % (AUTO) 9.1 % (20.5-51.1); MEAN CORPUSCULAR HEMOGLOBIN 28 pg (27-31); MEAN CORPUSCULAR HGB CONC 32 g/dL (33-37); MEAN CORPUSCULAR VOLUME 88.5 fL (80-94); MONOCYTES # (AUTO) 0.6 K/uL (0.8-1.0); MONOCYTES % (AUTO) 4.2 % (1.7-9.3); NEUTROPHILS # (AUTO) 12.9 K/uL (1.8-7.7); NEUTROPHILS % (AUTO) 84.8 % (42.2-75.2); PLATELET COUNT (AUTO) 240 K/uL (140-450); RED BLOOD CELL COUNT(AUTO) 4.01 MIL/uL (4.20-5.40); RED CELL DISTRIBUTION WIDTH 15.6 % (11.6-13.7); WHITE BLOOD COUNT (AUTO) 15.2 K/uL (4.8-10.8)
[2021-07-09 05:36] LABS: ANION GAP 14.7 (8-16); CARBON DIOXIDE 22.1 mmol/L (21-32); CHLORIDE 108 mmol/L (98-107); CREATININE 0.9 mg/dL (0.6-1.3); GLUCOSE 103 mg/dL (74-106); POTASSIUM 3.8 mmol/L (3.5-5.1); SODIUM SERUM 141 mmol/L (136-145); UREA NITROGEN, BLOOD 10 mg/dL (7-18)
--- NOTE | 2021-07-09 07:07 | NUR ---
REPORT GIVEN TO RIN HOBSON FOR CONTINUITY OF CARE. PT SITTING UP AAOX3. NO APPARENT S/S OF ACUTE DISTRESS. BREATHING EVEN AND UNLABORED. BED IN LOW/LOCKED POSITION. CALL LIGHT WITHIN REACH. ALL NEEDS MET AT THIS TIME.
--- NOTE | 2021-07-09 07:24 | NUR ---
RECEIVED REPORT FROM GRADUATE ENGINEER NURSE FOR CONTINUITY OF CARE, POC DISCUSSED. PT AWOKEN IN BED DUE TO DECREASED O2 SATURATION, SAT PATIENT UP AND HAD PATIENT TAKING DEEP BREATHS. O2 INCREASED TO 15L. NASAL CANNULA NOT IN NOSE, EDUCATED PATIENT ON ENSURING THOSE STAY IN. O2 SATURATION INCREASED TO 92L. PT REPORTS ALL OTHER NEEDS MET. PT ON TELE MONITOR SHOWING SINUS RHYTHM. PT HAS A LEFT AC 22G SALINE LOCK AND A D5 HALF NS @ 125ML. ALL SAFETY MEASURES IN PLACE. CALL LIGHT WITHIN REACH. WILL CONTINUE TO MONITOR.
[2021-07-09 08:00] VITALS: BP 115/57
[2021-07-09] MEDS: PANTOPRAZOLE 40 MG INJ VIAL IVP SCH (08:14)
[2021-07-09] MEDS: ACETAMINOPHEN EXTRA STRENGTH 500 MG TAB PO SCH ×4 (08:14→20:09)
[2021-07-09] MEDS: ENOXAPARIN 40 MG/0.4 ML SYR SUBQ SCH (08:15)
--- NOTE | 2021-07-09 08:27 | NUR ---
MAXWELL MEDICATION ADMINISTERED PER MD ORDER, PT EDUCATION PROVIDED. PT TOLERATED ADMINISTRATION. PT IV PATENT AND INTACT. PT REPORTS MILD SOB, SAT PATIENT UP, PT REPORTED THAT FEELING BETTER. ALL MEDICATION ADMINISTERED PER MD ORDER. PT TOLERATED ADMINISTRATION. ALL SAFETY MEASURES IN PLACE, CALL LIGHT WITHIN REACH. WILL CONTINUE TO MONITOR.
--- NOTE | 2021-07-09 08:57 | NUR ---
PT REPORTING NEEDING TO USE BEDSIDE COMMODE. PT DISCONNECTED FROM IV, ASSISTED TO BEDSIDE COMMODE. PT VERBALIZED UNDERSTANDING TO CALL WHEN FINISHED FOR ASSISTANCE BACK TO THE BED. CALL LIGHT WITHIN REACH. WILL CONTINUE TO MONITOR.
--- NOTE | 2021-07-09 09:07 | NUR ---
PT WAS ASSISTED BACK TO BED BY JAZLYN RODRIGUEZ. PT RECONNECT TO IV FLUIDS, SPO2 AT 91. PT SITTING UP WITH BREAKFAST IN FRONT OF HER. PROVIDED PT WITH JUICE AND ARTIFICIAL SWEETENER PER REQUEST. PT IS STABLE. WILL CONTINUE TO MONITOR.
--- NOTE | 2021-07-09 09:34 | NUR ---
RADIOLOGY AT BEDSIDE TAKING PATIENTS XRAY. PT STABLE. CALL LIGHT WITHIN REACH. WILL CONTINUE TO MONITOR.
--- NOTE | 2021-07-09 11:01 | NUR ---
PT IS ASLEEP IN BED WITH NO ACUTE S/S OF DISTRESS, CALL LIGHT WITHIN REACH. WILL CONTINUE TO MONITOR.
[2021-07-09 12:00] VITALS: BP 127/60
--- NOTE | 2021-07-09 12:19 | NUR ---
MAXWELL MEDICATION ADMINISTERED PER MD ORDER, PT TOLERATED ADMINISTRATION. PT EDUCATION PROVIDED. PT VERBALIZED UNDERSTANDING. PT PROVIDED WITH ALL NEEDS, EDUCATED ON IMPORTANCE OF USING CALL LIGHT PRIOR TO AMBULATION TO BEDSIDE COMMODE, PT VERBALIZED UNDERSTANDING. ALL SAFETY MEASURES IN PLACE, CALL LIGHT WITHIN REACH. WILL CONTINUE TO MONITOR.
--- NOTE | 2021-07-09 12:27 | NUR ---
PT SHEETS CHANGED, PT STABLE, ALL SAFETY MEASURES IN PLACE. CALL LIGHT WITHIN REACH. WILL CONTINUE TO MONITOR.
--- NOTE | 2021-07-09 12:58 | NUR ---
PRN ATIVAN ADMINISTERED PER MD ORDER, PT REPORT SEVERE ANXIETY AND NON THERAPEUTIC MEASURES ARE NOT WORKING. IV PATENT AND INTACT. ASSISTED WITH OPENING CONTAINERS. CALL LIGHT WITHIN REACH. WILL CONTINUE TO MONITOR.
--- NOTE | 2021-07-09 13:35 | NUR ---
PT ASLEEP IN BED WITH NO ACUTE S/S OF DISTRESS.
--- NOTE | 2021-07-09 14:47 | NUR ---
HUNG A NEW IV BAG, PROVIDED PATIENT WITH COOL WASH CLOTHE, ICE WATER, AND MILK. MET ALL NEEDS. RECONNECTED TO SPO2 MONITOR, SATING AT 96. CLEANED COMMODE, YELLOW URINE NOTED. NIRANJAN DRAIN EMPTIED OF 60 ML SEROSANG FLUIDS. PT IS STABLE, ALL SAFETY MEASURES IN PLACE, CALL LIGHT WITHIN REACH. WILL CONTINUE TO MONITOR.
[2021-07-09 16:00] VITALS: BP 121/54
[2021-07-09] MEDS: HYDROcodone/APAP 5/325 MG 1 TAB TAB PO PRN (16:16)
--- NOTE | 2021-07-09 16:16 | NUR ---
PRN PAIN MEDICATION ADMINISTERED PER MD ORDER, PT TOLERATED ADMINISTRATION. PT MAXWELL MEDICATION ADMINISTERED PER MD ORDER, PT TOLERATED ADMINISTRATION. ALL SAFETY MEASURES IN PLACE, CALL LIGHT WITHIN REACH. WILL CONTINUE TO MONITOR.
--- NOTE | 2021-07-09 17:08 | NUR ---
NEW DRESSING APPLIED TO IV, NO SWELLING, REDNESS OR PAIN NOTED. WILL CONTINUE TO MONITOR.
[2021-07-09] MEDS: ONDANSETRON 4 MG/2 ML VIAL IM/IVP PRN (18:05)
--- NOTE | 2021-07-09 18:29 | NUR ---
PT ASSISTED TO BEDSIDE COMMODE, VOID ADEQUATELY. PT SHEETS CHANGED. LEFT HAND AND FOREARM IV REMOVED AT ROUGHLY 1750. NEW IV INSERTED IN RIGHT HAND 24 GAUGE. 3 ATTEMPTS MADE. PT SATING AT 92-96 PERCENT THE ENTIRE TIME. ALL SAFETY MEASURES IN PLACE, CALL LIGHT WITHIN REACH. WILL CONTINUE TO MONITOR.
--- NOTE | 2021-07-09 19:20 | NUR ---
RECEIVED REPORT FROM RIN HOBSON FOR CONTINUITY OF CARE. PT SITTING UP AAOX4 WITH AT BEDSIDE. NO APPARENT S/S OF ACUTE DISTRESS. BREATHING EVEN AND UNLABORED ON 15L WITH O2 SAT OF 94%. NO C/O CP, SOB OR PAIN. R HAND 24G INTACT/PATENT WITH D5 1/2NS@125. POC AND WHITE COMMUNICATION BOARD UPDATED. BED IN LOW/LOCKED POSITION. CALL LIGHT WITHIN REACH. PT/ ENCOURAGED TO CALL FOR ANY NEEDS/ASSISTANCE. WILL CONTINUE TO MONITOR.
--- NOTE | 2021-07-09 19:23 | NUR ---
PT ENDORSED TO TINWARE LITHOGRAPH PRESS OPERATOR NURSE FOR CONTINUITY OF CARE, POC DISCUSSED.
[2021-07-09 20:00] VITALS: BP 125/72
[2021-07-09] MEDS: DOCUSATE SODIUM 100 MG GELCAP PO PRN (20:07)
[2021-07-10] VITALS: BP 129/73
[2021-07-10] MEDS: DEXT 5% / NACL 0.45% 1,000 ML IV SCH ×3 (01:55→16:11)
[2021-07-10] MEDS: LEVOFLOXACIN 750 MG/D5W PREMIX 150 ML IV SCH (02:01)
[2021-07-10] MEDS: LORazepam 2 MG/ML VIAL IVP PRN ×2 (02:57→12:38)
[2021-07-10 04:00] VITALS: BP 147/73
[2021-07-10] MEDS: ONDANSETRON 4 MG/2 ML VIAL IM/IVP PRN (04:59)
[2021-07-10] MEDS: metroNIDAZOLE 500 MG/NS PREMIX 100 ML IV SCH (05:00)
[2021-07-10 06:00] LABS: BASOPHILS % (AUTO) 0.1 % (0.0-2.0); EOSINOPHILS # (AUTO) 0.4 K/uL (0-0.4); EOSINOPHILS % (AUTO) 2.6 % (0.0-4.0); HEMOGLOBIN 11.1 g/dL (12.0-16.0); LYMPHOCYTES # (AUTO) 0.9 K/uL (2.5-16.5); LYMPHOCYTES % (AUTO) 5.8 % (20.5-51.1); MEAN CORPUSCULAR HEMOGLOBIN 29 pg (27-31); MEAN CORPUSCULAR HGB CONC 33 g/dL (33-37); MEAN CORPUSCULAR VOLUME 87.4 fL (80-94); MONOCYTES % (AUTO) 6.6 % (1.7-9.3); NEUTROPHILS # (AUTO) 12.7 K/uL (1.8-7.7); NEUTROPHILS % (AUTO) 84.9 % (42.2-75.2); PLATELET COUNT (AUTO) 217 K/uL (140-450); RED CELL DISTRIBUTION WIDTH 15.9 % (11.6-13.7)
[2021-07-10 06:19] LABS: ANION GAP 13.5 (8-16); CARBON DIOXIDE 22.9 mmol/L (21-32); CHLORIDE 107 mmol/L (98-107); CREATININE 0.8 mg/dL (0.6-1.3); GLUCOSE 130 mg/dL (74-106); POTASSIUM 3.4 mmol/L (3.5-5.1); SODIUM SERUM 140 mmol/L (136-145); UREA NITROGEN, BLOOD 10 mg/dL (7-18)
--- NOTE | 2021-07-10 07:04 | NUR ---
REPORT GIVEN TO KARON HOBSON FOR CONTINUITY OF CARE. PT SITTING UP AAOX3. NO APPARENT S/S OF ACUTE DISTRESS. BREATHING EVEN AND UNLABORED. BED IN LOW/LOCKED POSITION. CALL LIGHT WITHIN REACH. ALL NEEDS MET AT THIS TIME.
--- NOTE | 2021-07-10 07:15 | NUR ---
RECEIVED REPORT FROM METAL TURNER NURSE FOR CONTINUITY OF CARE. PT IS AWAKE AND ALERT. ON 15L O2 WITH HUMIDIFIER. BREATHING IS UNLABORED. SR ON TELE MONITOR. COMMODE AT BEDSIDE. NIRANJAN DRAIN IN PLACE DRAINING FLUID FROM ABD. INCISIONS ON ABD; S/P PELVIC ADHESION BAND RELEASE. IV IS IN THE LEFT HAND 24 GAUGE INFUSING FLUIDS ORDERED. PT IS STABLE. PLAN OF CARE DISCUSSED.
--- NOTE | 2021-07-10 07:58 | NUR ---
DIETARY CONSULT FOR DIET EDUCATION WAS RECEIVED
[2021-07-10 08:00] VITALS: BP 120/65
[2021-07-10] MEDS: PANTOPRAZOLE 40 MG INJ VIAL IVP SCH (08:34)
[2021-07-10] MEDS: ACETAMINOPHEN EXTRA STRENGTH 500 MG TAB PO SCH ×4 (08:34→20:13)
[2021-07-10] MEDS: ENOXAPARIN 40 MG/0.4 ML SYR SUBQ SCH (08:35)
[2021-07-10] MEDS: POTASSIUM CHLORIDE 10 MEQ TABER PO PRN (08:35)
--- NOTE | 2021-07-10 08:35 | NUR ---
PTS POTASSIUM LEVEL IS 3.4 AND PT WAS GIVEN KDUR 40 MEQ PO ORDERED PRN LOW POTASSIUM UNDER 3.5. MEDICATION EDUCATION WAS PROVIDED AND PT VERBALIZED UNDERSTANDING.
--- NOTE | 2021-07-10 10:30 | NUR ---
PT WAS ASSISTED TO THE BEDSIDE COMMODE. PT HAD UNSTEADY GAIT. PT HAD A BOWEL MOVEMENT; BROWN AND SOFT IN CONSISTENCY. SMALL AMOUNT OF BLOOD WAS NOTED AND PT STATED SHE HAS HEMORRHOIDS. INFORMED DR. ESPINOSA OF THIS FINDING. PT IS STABLE AT THIS TIME. DENIES PAIN.
[2021-07-10] MEDS ORDERED: LEVOFLOXACIN 750 MG/D5W PREMIX 150 ML IV SCH (11:55)
[2021-07-10 12:00] VITALS: BP 135/72
--- NOTE | 2021-07-10 12:38 | NUR ---
PT IS STATING SHE IS FEELING ANXIOUS AND WAS GIVEN ATIVAN FOR ANXIETY. BP WAS 135/72 PRIOR TO ADMINISTRATION OF MEDICATION. WILL MONITOR FOR ANXIETY.
--- NOTE | 2021-07-10 13:58 | NUR ---
07/10/21 RD FOLLOW UP COMPLETED PLEASE REFER TO NUTRITION ASSESSMENT UNDER CARE ACTIVITY FOR ESTIMATED NUTRITIONAL NEEDS. 1. CONTINUE FULL LIQUIDS MEDICALLY APPROPRIATE 2. IF/WHEN MEDICALLY CLEARED GRADUALLY ADVANCING TO SOFT/BLAND/LOW FIBER DIET 3. RECOMMEND ENSURE BID 4. NUTRITION EDUCATION ON LOW FIBER/BLAND DIET WAS PROVIDED. PT ACCEPTED 5. RD TO FOLLOW-UP 3-5 DAYS, MODERATE RISK STEWART GOLD RD
--- NOTE | 2021-07-10 14:30 | NUR ---
PT WAS ASSISTED TO THE BEDSIDE COMMODE. PT'S GAIT WAS UNSTEADY AND NEEDED MODERATE ASSISTANCE. PT WAS CLEANED AND NEW LINENS WERE PLACED ON BED. PT IS BACK TO BED AND STABLE. NIRANJAN DRAIN IN PLACE DRAINING SEROSANGUINEOUS FLUID.
[2021-07-10 16:00] VITALS: BP 145/82
--- NOTE | 2021-07-10 17:09 | NUR ---
INFORMED DOCTOR FRANCISCA ON THE PHONE THAT THE PT IS HAVING A LOT OF ANXIETY AND IS CRYING. HE ORDERED XANAX PO 0.25 MG TID PRN FOR ANXIETY AND RESTLESSNESS. WILL ADMINISTER ONCE VERIFIED.
[2021-07-10] MEDS: ALPRAZolam 0.25 MG TAB PO PRN (17:19)
--- NOTE | 2021-07-10 17:19 | NUR ---
PT WAS FEELING ANXIETY/RESTLESSNESS. ADMINISTERED XANAX PRN PER MD ORDER. PT IS STABLE. WILL CONTINUE TO MONITOR.
--- NOTE | 2021-07-10 17:45 | NUR ---
RECEIVED VERBAL ORDER FROM DR. RIVERS TO CHANGE DIET TO SOFT DIET.
--- NOTE | 2021-07-10 18:00 | NUR ---
IV IN THE LEFT HAND WAS INFILTRATED. IV WAS REMOVED, WARM COMPRESS WAS APPLIED, AND ELEVATED HAND ON THREE PILLOWS. BLEEDING WAS CONTROLLED. NEW IV INSERTED ON THE RIGHT THUMB 24 GAUGE PATENT AND INTACT. NEW IV PLACED BY CHARGE NURSE BNEI HOBSON.
--- NOTE | 2021-07-10 19:20 | NUR ---
ENDORSED PT TO PRODUCTION WOOD CRAFTSMAN NURSE FOR CONTINUITY OF CARE. PT IS STABLE AT THIS TIME. PLAN OF CARE DISCUSSED.
--- NOTE | 2021-07-10 19:25 | NUR ---
RECEIVED REPORT FROM KARON HOBSON FOR CONTINUITY OF CARE. PT SITTING UP AAOX4. NO APPARENT S/S OF ACUTE DISTRESS. BREATHING EVEN AND UNLABORED ON 10L WITH O2 SAT OF 94%. NO C/O CP, SOB OR PAIN. POC AND WHITE COMMUNICATION BOARD UPDATED. BED IN LOW/LOCKED POSITION. CALL LIGHT WITHIN REACH. PT ENCOURAGED TO CALL FOR ANY NEEDS/ASSISTANCE. WILL CONTINUE TO MONITOR.
[2021-07-10 20:00] VITALS: BP 134/69
[2021-07-10] MEDS: GABAPENTIN 100 MG CAP PO SCH (20:08)
[2021-07-10] MEDS: DOCUSATE SODIUM 100 MG GELCAP PO PRN (20:12)
[2021-07-10] MEDS: ZOLPIDEM 5 MG TAB PO PRN (20:14)
[2021-07-10] MEDS ORDERED: CEFEPIME 1,000 MG in DEXTROSE 5% 50 ML IV SCH (21:00)
[2021-07-10] MEDS: MEROPENEM 1,000 MG in NACL 0.9% 100 ML IV SCH (21:00)
[2021-07-10] MEDS ORDERED: MEROPENEM 1,000 MG VIAL IV ONE (21:34)
--- NOTE | 2021-07-10 22:49 | NUR ---
RECEIVED PATIENT WITH INEFFECTIVE IV ACCESS. WILL ATTEMPT TO START NEW IV. Addendum: 07/10/21 at 2250 by Agency Bailey HOBSON RN AMEND TIME TO CHANGE OF SHIFT [id number]
[2021-07-11] VITALS: BP 139/77
--- NOTE | 2021-07-11 | NUR ---
IV ACCESS ESTABLISHED, R WRIST 24G.
[2021-07-11] MEDS: DEXT 5% / NACL 0.45% 1,000 ML IV SCH ×3 (01:55→18:06)
[2021-07-11 04:00] VITALS: BP 136/97
[2021-07-11 05:54] LABS: ANION GAP 9.2 (8-16); CARBON DIOXIDE 26.7 mmol/L (21-32); CHLORIDE 109 mmol/L (98-107); CREATININE 0.8 mg/dL (0.6-1.3); GLUCOSE 130 mg/dL (74-106); POTASSIUM 3.9 mmol/L (3.5-5.1); SODIUM SERUM 141 mmol/L (136-145); UREA NITROGEN, BLOOD 9 mg/dL (7-18)
[2021-07-11 06:08] LABS: MAGNESIUM 1.6 mg/dL (1.8-2.4); PHOSPHORUS 2.2 mg/dL (2.5-4.9)
[2021-07-11 06:17] LABS: BASOPHILS % (AUTO) 0.3 % (0.0-2.0); EOSINOPHILS # (AUTO) 0.4 K/uL (0-0.4); HEMATOCRIT 31.3 % (36-48); HEMOGLOBIN 10.2 g/dL (12.0-16.0); LYMPHOCYTES # (AUTO) 1.2 K/uL (2.5-16.5); LYMPHOCYTES % (AUTO) 8.6 % (20.5-51.1); MEAN CORPUSCULAR HEMOGLOBIN 28 pg (27-31); MEAN CORPUSCULAR HGB CONC 32 g/dL (33-37); MEAN CORPUSCULAR VOLUME 86.2 fL (80-94); MONOCYTES # (AUTO) 1.1 K/uL (0.8-1.0); MONOCYTES % (AUTO) 8.4 % (1.7-9.3); NEUTROPHILS # (AUTO) 10.7 K/uL (1.8-7.7); NEUTROPHILS % (AUTO) 79.7 % (42.2-75.2); PLATELET COUNT (AUTO) 234 K/uL (140-450); RED BLOOD CELL COUNT(AUTO) 3.63 MIL/uL (4.20-5.40); RED CELL DISTRIBUTION WIDTH 15.9 % (11.6-13.7); WHITE BLOOD COUNT (AUTO) 13.5 K/uL (4.8-10.8)
--- NOTE | 2021-07-11 07:07 | NUR ---
REPORT GIVEN TO KARON HOBSON FOR CONTINUITY OF CARE. PT SITTING UP AAOX4. NO APPARENT S/S OF ACUTE DISTRESS. BREATHING EVEN AND UNLABORED. BED IN LOW/LOCKED POSITION. CALL LIGHT WITHIN REACH. ALL NEEDS MET AT THIS TIME.
--- NOTE | 2021-07-11 07:20 | NUR ---
RECEIVED BEDSIDE REPORT FROM WATER PUMP INSTALLER NURSE FOR CONTINUITY OF CARE. PT IS AWAKE AND ALERT. A&OX4. ON 15L O2 NC WITH HUMIDIFIER. BREATHING IS UNLABORED. SR ON TELE MONITOR. COMMODE AT BEDSIDE FOR VOIDING. ABD IS SOFT AND NONTENDER. THREE ABDOMINAL INCISIONS WITH DERMABOND IN PLACE; S/P PELVIC ADHESION BAND RELEASE. NIRANJAN DRAIN IN PLACE ON THE LEFT ABD; DRAINING SEROSANGUINEOUS FLUID. IV IS IN THE RIGHT WRIST 24 GAUGE RUNNING FLUIDS ORDERED. PT IS STABLE. PLAN OF CARE DISCUSSED.
[2021-07-11 08:00] VITALS: BP 128/65
--- NOTE | 2021-07-11 08:01 | NUR ---
NC LOWERED TO 10L. SPO2 93%. PT SLIGHTLY TACHYPNEIC BUT PT STATES FEELING ANXIOUS. PT COACHED ON INCENTIVE SPIROMETER AND INDICATIONS FOR TX. PT STATES UNDERSTANDING. NURSE MADE AWARE.
[2021-07-11] MEDS: PANTOPRAZOLE 40 MG INJ VIAL IVP SCH (08:15)
[2021-07-11] MEDS: ALPRAZolam 0.25 MG TAB PO PRN ×2 (08:15→14:36)
[2021-07-11] MEDS: MEROPENEM 1,000 MG in NACL 0.9% 100 ML IV SCH ×2 (08:15→21:54)
--- NOTE | 2021-07-11 08:15 | NUR ---
PT HAS AN INCREASED RR OF 40 AND STATES SHE IS FEELING VERY ANXIOUS ABOUT BEING IN THE HOSPITAL. PT WAS GIVEN XANAX FOR ANXIETY. BP WAS STABLE PRIOR TO ADMINISTRATION OF MEDICATION. WILL CONTINUE TO MONITOR PT FOR ANXIETY. RT WAS ALSO CALLED TO THE BEDSIDE AND PRACTICED THE INCENTIVE SPIROMETER WITH THE PT AND PROVIDED PT TEACHING.
[2021-07-11] MEDS: ENOXAPARIN 40 MG/0.4 ML SYR SUBQ SCH (08:16)
[2021-07-11] MEDS: VENLAFAXINE XR 75 MG CAPER PO SCH (08:17)
[2021-07-11] MEDS: LEVOTHYROXINE 0.05 MG TAB PO SCH (08:17)
[2021-07-11] MEDS: GABAPENTIN 100 MG CAP PO SCH ×2 (08:17→20:52)
[2021-07-11] MEDS: ACETAMINOPHEN EXTRA STRENGTH 500 MG TAB PO SCH ×4 (08:18→20:53)
[2021-07-11] MEDS ORDERED: DULoxetine 30 MG CAPDR PO SCH (09:00)
--- NOTE | 2021-07-11 10:00 | NUR ---
PT STATES THAT SHE IS FEELING BETTER AND LESS ANXIOUS. PT WAS ASSISTED TO THE BEDSIDE COMMODE WITH THE ASSISTANCE OF LELIA SOL. PT HAS STEADY GAIT. O2 SAT IS 94% ON 10 L NC WITH HUMIDIFIER. PT IS STABLE AT THIS TIME.
[2021-07-11] MEDS: SHARK OIL/PHENYLEPHRINE 60 GM TUBE TP PRN (10:55)
--- NOTE | 2021-07-11 10:55 | NUR ---
PT WAS GIVEN PREPARATION H ON THE OUTER PART OF RECTUM FOR HEMORRHOIDS. PT TOLERATED THIS WELL. NO SIGNS OF BLEEDING AT THIS TIME.
[2021-07-11] MEDS: ALBUTEROL SULFATE/IPRATROPIU 3 ML SOL IH PRN ×2 (11:28→17:07)
--- NOTE | 2021-07-11 11:28 | NUR ---
PT TACHYPNEIC AND COMPLAINING OF SOB, PRN BREATHING TX TO BE ADMINISTERED.
[2021-07-11] MEDS ORDERED: MAGNESIUM OXIDE 400 MG TAB PO PRN (11:45)
[2021-07-11 12:00] VITALS: BP 124/69
--- NOTE | 2021-07-11 12:34 | NUR ---
PT IS RESTING IN SEMI FOWLERS POSITION. BREATHING IS UNLABORED ON 10L O2 NC WITH HUMIDIFIER. PT IS DOING BREATHING TX WITH INCENTIVE SPIROMETER AT BEDSIDE. NO DISTRESS NOTED. WILL CONTINUE TO MONITOR.
--- NOTE | 2021-07-11 12:50 | NUR ---
DR. EVERETT AT BEDSIDE REMOVING NIRANJAN DRAIN FROM THE LEFT ABDOMEN. NO BLEEDING PRESENT. PT TOLERATED THIS WELL. GAUZE IN PLACE.
--- NOTE | 2021-07-11 14:37 | NUR ---
PT STATES SHE HAS A LOT OF ANXIETY AND WAS GIVEN XANAX. BP WAS STABLE PRIOR TO ADMINISTRATION OF MEDICATION. PT WAS ALSO GIVEN MAGNESIUM OXIDE PRN FOR MAGNESIUM LEVEL OF 1.6.
[2021-07-11 16:00] VITALS: BP 139/81
--- NOTE | 2021-07-11 16:30 | NUR ---
PT STATES SHE HAS NOT BEEN ABLE TO VOID SINCE THE EARLY AM. USED THE BLADDER SCANNER AND 950 ML WAS TOTAL IN THE BLADDER. PT STATES THAT SHES BEEN FEELING ANXIOUS ABOUT THE POSSIBILITY OF BEING TRANSFERRED TO A LT[facility] SO SHE HASN'T BEEN ABLE TO VOID. PROVIDED REASSURANCE AND GAVE DEEP BREATHING EXERCISES TO CALM PT DOWN. ASSISTED THE PT TO THE BEDSIDE COMMODE AND WILL WAIT FOR PT TO VOID.
--- NOTE | 2021-07-11 17:00 | NUR ---
PT WAS STILL UNABLE TO VOID AND NOTIFIED DR. ESPINOSA ABOUT THE 950 ML OF URINE IN THE BLADDER. HE ORDERED TO STRAIGHT CATH IF PT IS UNABLE TO VOID.
--- NOTE | 2021-07-11 17:10 | NUR ---
ASSISTED PT BACK TO THE COMMODE WHERE SHE WAS GOING TO ATTEMPT TO VOID. PT VOIDED CLEAR, YELLOW URINE. USED BLADDER SCANNER ON PT AND SHE HAD 220 ML OF URINE LEFT IN BLADDER. ENCOURAGED PT TO VOID WHEN SHE FEELS URGENCY TO VOID AND NOT TO HOLD URINE. PT VERBALIZED UNDERSTANDING. PT DID NOT NEED TO BE STRAIGHT CATHED. Addendum: 07/11/21 at 1753 by Jessa Ellis RN INFORMED DR. ESPINOSA THAT THE PT VOIDED AND STRAIGHT CATH WAS NOT NEEDED.
--- NOTE | 2021-07-11 19:30 | NUR ---
RECEIVED REPORT FROM KARON HOBSON FOR CONTINUITY OF CARE. PT SITTING UP AAOX4. NO APPARENT S/S OF ACUTE DISTRESS. BREATHING EVEN AND UNLABORED ON 10L WITH O2 SAT OF 98%. NO C/O CP, SOB OR PAIN. R WRIST 24G INTACT/PATENT. S/P NIRANJAN DRAIN REMOVAL, DRESSING C/D/I. POC AND WHITE COMMUNICATION BOARD UPDATED. BED IN LOW/LOCKED POSITION. CALL LIGHT WITHIN REACH. PT ENCOURAGED TO CALL FOR ANY NEEDS/ASSISTANCE. WILL CONTINUE TO MONITOR.
--- NOTE | 2021-07-11 19:40 | NUR ---
ENDORSED PT TO CELL TUBER MACHINE NURSE FOR CONTINUITY OF CARE. O2 SAT IS 95%. PT IS STABLE AT THIS TIME. PLAN OF CARE DISCUSSED.
[2021-07-11 20:00] VITALS: BP 134/68
[2021-07-11] MEDS: DOCUSATE SODIUM 100 MG GELCAP PO PRN (20:53)
[2021-07-11] MEDS: ZOLPIDEM 5 MG TAB PO PRN (20:54)
[2021-07-11] MEDS: ALBUTEROL SULFATE/IPRATROPIU 3 ML SOL IH SCH (21:34)
[2021-07-12] VITALS: BP 133/77
[2021-07-12] MEDS: ALPRAZolam 0.25 MG TAB PO PRN ×3 (01:32→18:00)
[2021-07-12] MEDS ORDERED: LEVOFLOXACIN 750 MG/D5W PREMIX 150 ML IV SCH (02:00)
[2021-07-12] MEDS: DEXT 5% / NACL 0.45% 1,000 ML IV SCH ×4 (02:53→20:43)
[2021-07-12 04:00] VITALS: BP 131/70
[2021-07-12 05:54] LABS: ANION GAP 10.7 (8-16); CARBON DIOXIDE 28.1 mmol/L (21-32); CHLORIDE 108 mmol/L (98-107); CREATININE 0.7 mg/dL (0.6-1.3); GLUCOSE 91 mg/dL (74-106); POTASSIUM 3.8 mmol/L (3.5-5.1); SODIUM SERUM 143 mmol/L (136-145); UREA NITROGEN, BLOOD 12 mg/dL (7-18)
[2021-07-12 06:20] LABS: BASOPHILS % (AUTO) 0.2 % (0.0-2.0); EOSINOPHILS # (AUTO) 0.5 K/uL (0-0.4); EOSINOPHILS % (AUTO) 5.1 % (0.0-4.0); HEMATOCRIT 31.9 % (36-48); HEMOGLOBIN 10.6 g/dL (12.0-16.0); LYMPHOCYTES # (AUTO) 1.7 K/uL (2.5-16.5); LYMPHOCYTES % (AUTO) 16.7 % (20.5-51.1); MEAN CORPUSCULAR HEMOGLOBIN 29 pg (27-31); MEAN CORPUSCULAR HGB CONC 33 g/dL (33-37); MEAN CORPUSCULAR VOLUME 86.8 fL (80-94); MONOCYTES # (AUTO) 0.9 K/uL (0.8-1.0); MONOCYTES % (AUTO) 8.5 % (1.7-9.3); NEUTROPHILS % (AUTO) 69.5 % (42.2-75.2); PLATELET COUNT (AUTO) 247 K/uL (140-450); RED BLOOD CELL COUNT(AUTO) 3.67 MIL/uL (4.20-5.40); RED CELL DISTRIBUTION WIDTH 15.9 % (11.6-13.7); WHITE BLOOD COUNT (AUTO) 10.1 K/uL (4.8-10.8)
--- NOTE | 2021-07-12 07:13 | NUR ---
REPORT GIVEN TO SARAH HOBSON FOR CONTINUITY OF CARE. PT SITTING UP AAOX4. NO APPARENT S/S OF ACUTE DISTRESS. BREATHING EVEN AND UNLABORED. BED IN LOW/LOCKED POSITION. CALL LIGHT WITHIN REACH. ALL NEEDS MET AT THIS TIME.
--- NOTE | 2021-07-12 07:20 | NUR ---
RECEIVED REPORT FROM BOMB LOADER NURSE. PT STABLE. NO S/S OF DISTRESS. BREATHING SYMMETRICAL. CALL LIGHT IN REACH. ALL SAFETY MEASURES IN PLACE.
[2021-07-12] MEDS: ALBUTEROL SULFATE/IPRATROPIU 3 ML SOL IH SCH ×2 (07:23→19:00)
[2021-07-12 08:00] VITALS: BP 133/70
[2021-07-12] MEDS: ENOXAPARIN 40 MG/0.4 ML SYR SUBQ SCH (08:23)
[2021-07-12] MEDS: ACETAMINOPHEN EXTRA STRENGTH 500 MG TAB PO SCH ×3 (08:24→17:01)
[2021-07-12] MEDS: PANTOPRAZOLE 40 MG INJ VIAL IVP SCH (08:26)
[2021-07-12] MEDS: LEVOTHYROXINE 0.05 MG TAB PO SCH (08:27)
[2021-07-12] MEDS: VENLAFAXINE XR 75 MG CAPER PO SCH (08:27)
[2021-07-12] MEDS: GABAPENTIN 100 MG CAP PO SCH ×2 (08:27→21:16)
--- NOTE | 2021-07-12 08:28 | NUR ---
PATIENT STATED FEELING ANXIOUS. PATIENT MEDICATED PER MD ORDER. EDUCATED ON MEDICATIONS GIVEN. PT VERBALIZED UNDERSTANDING. CALL LIGHT IN REACH. ALL SAFETY MEASURES IN PLACE
[2021-07-12] MEDS: MEROPENEM 1,000 MG in NACL 0.9% 100 ML IV SCH ×2 (09:00→21:33)
--- NOTE | 2021-07-12 10:20 | NUR ---
PATIENT'S BED LINENS CHANGED, PATIENT AMBULATED TO COMMODE WITH 1 PERSON ASSISTANCE. PT TOLERATED WELL. PT BACK IN BED DANGLING , ALL BELONGINGS WITHIN REACH , CALL LIGHT WITHIN REACH . ALL SAFETY MEASURES ARE IN PLACE.
[2021-07-12] MEDS: FUROSEMIDE 20 MG/2 ML VIAL IVP SCH ×2 (10:50→21:34)
[2021-07-12 12:00] VITALS: BP 114/64
--- NOTE | 2021-07-12 13:39 | NUR ---
PATIENT ASSISTED WITH USING COMMODE, STAND BY ASSISTANCE X1. PATIENT TOLERATED WELL. PT BACK IN BED . ALL SAFETY MEASURES IN PLACE. CALL LIGHT WITHIN REACH
--- NOTE | 2021-07-12 13:59 | NUR ---
RT AND PT AT BEDSIDE
[2021-07-12] MEDS: SHARK OIL/PHENYLEPHRINE 60 GM TUBE TP PRN (15:13)
--- NOTE | 2021-07-12 15:41 | NUR ---
PT IV REMOVED AND REPLACED AT 1228. PT IV NOT PATENT. NEW IV 24G LEFT FOREARM. DRY, INTACT, PATENT, FLUSHING, AND WRAPPED WITH BANDAGE. IV FLUIDS FLUSHING PER MD ORDER. PT TOLERATED WELL. CALL LIGHT IN REACH. ALL SAFETY MEASURE IN PLACE.
[2021-07-12 16:00] VITALS: BP 122/66
--- NOTE | 2021-07-12 17:37 | NUR ---
PT O2 TITRATED FROM 5L TO 4L HIGH FLOW NC. PATIENT TOLERATING WELL. PT ENCOURAGED TO USE IS. PT TOLERATED WELL. CALL LIGHT IN REACH. ALL SAFETY MEASURES
--- NOTE | 2021-07-12 19:23 | NUR ---
ENDORSED PT TO ZONING ENGINEER NURSE. PT STABLE. NO S/S OF DISTRESS. BREATHING SYMMETRICAL. CALL LIGHT IN REACH. ALL SAFETY MEASURES IN PLACE.
--- NOTE | 2021-07-12 19:24 | NUR ---
RECD. RESTING IN BED, AWAKE, A/OX4. RESPIRATION EVEN AND UNLABORED. ON 02 AT 4 LITERS VIA CURAPLEX NASAL CANNULA WITH HUMIDIFIER., 02 SAT - 96 VIA . IV OF D5 0.45% NS INFUSING A 125 ML/HR, LEFT FOREARM G24. INCISION IN THE ABDOMEN WITH DERMA MOSCOSO DRY AND INTACT, OPEN TO AIR, NIRANJAN SITE IN THE LEFT LOWER ABDOMEN COVERED WITH GAUZE DRESSING DRY AND INTACT. USES THE BEDSIDE COMMODE WITH ASSISTANCE. SAFETY MEASURES ENFORCED, BED IN THE LOWEST POSITION, 2 SIDE RAILS UP, CALL LIGHT IN REACH. MEDICATIONS FOR THE SHIFT DISCUSSED WITH PATIENT. VERBALIZED UNDERSTANDING. DENIES PAIN 0/10. AT THE BEDSIDE.
--- NOTE | 2021-07-12 19:30 | NUR ---
ASSISTED TO BSC TO HAVE BM. SAFETY MAINTAINED. INSTRUCTED PATIENT TO CALL WHEN SHE IS DONE, VERBALIZED UNDERSTANDING.
--- NOTE | 2021-07-12 19:56 | NUR ---
PATIENT ON CAMODE SEWING DEPARTMENT SUPERVISOR TO ATTEMPT HHN THERAPY GEETA LATER TIME NO DISTRESS NOTED
[2021-07-12 20:00] VITALS: BP 133/71
--- NOTE | 2021-07-12 20:38 | NUR ---
RECEIVED ON SUPPLEMENTAL OXYGEN AT 4 LPM VIA BUBBLE HUMIDIFIER WITH A CURAPLEX NASAL CANUULA SATURATION 96% POST HHN THERAPY TITRATED FIO2 TO 3 LPM MICKY/PROJECT EXECUTIVE NOTIFIED
--- NOTE | 2021-07-12 20:50 | NUR ---
VOIDED MODERATE AMOUNT OF LIGHT REDDISH URINE WITH TWO SMALL FORMED BM. BACK TO BED AFTER CLEANING HERSELF.
--- NOTE | 2021-07-12 21:00 | NUR ---
VERBALIZED SHE WANTS STOOL SOFTENER THAT IS STRONG THAN COLACE. WILL INFORM MD. TWO PRUNE JUICE GIVEN. HEALTH TEACHINGS GIVEN ON THE IMPORTANCE OF EATING FOODS RICH IN FIBER LIKE FRUITS AND VEGETABLES. VEBALIZED UNDERSTANDING.
[2021-07-12] MEDS: DOCUSATE SODIUM 100 MG GELCAP PO PRN (21:22)
--- NOTE | 2021-07-12 21:34 | NUR ---
PATIENT RESTING IN BED, WATCHING TV. MERREM IVP AND IV LASIX ADMINISTERED BY JAZLYN CALL. 02 SAT - 94 - 95% ON 3 LITERS OXYGEN.
--- NOTE | 2021-07-12 23:00 | NUR ---
SLEEPING ON HER RIGHT SIDE IN BED. RESPIRATION EVEN AND UNLABORED. 02 SAT - 95%.
--- NOTE | 2021-07-12 23:30 | NUR ---
ASSISTED TO GET OUT OF B ED TO GO TO THE BSC. BACK TO BED AFTER VOIDING. PILLOWS PLACED ON SIDES AND IN BETWEEN LOWER EXTREMITIES FOR COMFORT.
[2021-07-13] VITALS: BP 113/66
[2021-07-13] MEDS: DEXT 5% / NACL 0.45% 1,000 ML IV SCH ×3 (01:55→23:04)
--- NOTE | 2021-07-13 02:30 | NUR ---
ASSISTED TO BSC BY TELEPHONIC CASE MANAGER. BACK TO BED AFTER VOIDING. SAFETY MAINTAINED.
[2021-07-13] MEDS: ONDANSETRON 4 MG/2 ML VIAL IM/IVP PRN ×2 (02:51→15:13)
--- NOTE | 2021-07-13 02:51 | NUR ---
NAUSEATED, MEDICATED WITH ZOFRAN IVP BY JAZLYN CALL.
--- NOTE | 2021-07-13 03:51 | NUR ---
RESTING IN BED, NO NAUSEA NOTED. REQUESTED FOR VANILLA PUDDING GIVEN.
[2021-07-13] MEDS: SHARK OIL/PHENYLEPHRINE 60 GM TUBE TP PRN (03:59)
--- NOTE | 2021-07-13 03:59 | NUR ---
FEELS THAT HER HEMORRHOIDS IS IRRITATED BY FREQUENT GOING TO BSC, MEDICATED WITH PREPARATION H PER MD ORDER.
[2021-07-13 04:00] VITALS: BP 121/70
--- NOTE | 2021-07-13 05:00 | NUR ---
IV INFILTRATED. APPLIED COLD COMPRESS ON SITE. PATIENT WANTS A PEDIATRIC NURSE TO PUT IV ON HER BECAUSE SHE IS HARD STICK. EXPLAINED WE DO NOT HAD PED NURSE ON THE FLOOR. WANTS JUST TO BE STICK ONCE.
[2021-07-13] MEDS: ALPRAZolam 0.25 MG TAB PO PRN ×3 (05:15→17:07)
--- NOTE | 2021-07-13 05:15 | NUR ---
PATIENT COMPLAINED OF ANXIETY. XANAX ADMINISTERED. TOLERATED WELL. ASYMPTOMATIC. ALL SAFETY MEASURES IN PLACE. CALL LIGHT WITHIN REACH. WILL CONTINUE TO MONITOR.
--- NOTE | 2021-07-13 06:00 | NUR ---
CHECKED PATIENT. STABLE AND SLEEPING COMFORTABLY. CHEST RISING AND FALLING. NO SYMPTOMS OF ACUTE RESPIRATORY DISTRESS NOTED AT THIS TIME. ALL SAFETY MEASURES IN PLACE. CALL LIGHT WITHIN REACH. WILL CONTINUE TO MONITOR.
[2021-07-13 06:27] LABS: ANION GAP 13.9 (8-16); CARBON DIOXIDE 27.1 mmol/L (21-32); CHLORIDE 103 mmol/L (98-107); CREATININE 0.8 mg/dL (0.6-1.3); GLUCOSE 97 mg/dL (74-106); SODIUM SERUM 140 mmol/L (136-145); UREA NITROGEN, BLOOD 12 mg/dL (7-18)
[2021-07-13 06:31] LABS: BASOPHILS % (AUTO) 0.4 % (0.0-2.0); EOSINOPHILS # (AUTO) 0.6 K/uL (0-0.4); EOSINOPHILS % (AUTO) 4.9 % (0.0-4.0); HEMATOCRIT 32.7 % (36-48); HEMOGLOBIN 10.8 g/dL (12.0-16.0); LYMPHOCYTES # (AUTO) 2.8 K/uL (2.5-16.5); LYMPHOCYTES % (AUTO) 22.4 % (20.5-51.1); MEAN CORPUSCULAR HEMOGLOBIN 28 pg (27-31); MEAN CORPUSCULAR HGB CONC 33 g/dL (33-37); MEAN CORPUSCULAR VOLUME 85.9 fL (80-94); MONOCYTES # (AUTO) 0.8 K/uL (0.8-1.0); MONOCYTES % (AUTO) 6.5 % (1.7-9.3); NEUTROPHILS # (AUTO) 8.2 K/uL (1.8-7.7); NEUTROPHILS % (AUTO) 65.8 % (42.2-75.2); PLATELET COUNT (AUTO) 333 K/uL (140-450); RED BLOOD CELL COUNT(AUTO) 3.81 MIL/uL (4.20-5.40); WHITE BLOOD COUNT (AUTO) 12.4 K/uL (4.8-10.8)
--- NOTE | 2021-07-13 07:08 | NUR ---
ENDORSED PATIENT'S XANDER TO MORNING SHIFT NURSE. PATIENT STABLE. NO S/SX OF ACUTE RESPIRATORY DISTRESS. RESPIRATIONS EVEN AND UNLABORED. CALL LIGHT IN REACH. ALL SAFETY MEASURES IN PLACE. PATIENT STABLE.
[2021-07-13] MEDS: ALBUTEROL SULFATE/IPRATROPIU 3 ML SOL IH SCH ×3 (07:20→20:03)
[2021-07-13 08:00] VITALS: BP 144/85
[2021-07-13] MEDS: VENLAFAXINE XR 75 MG CAPER PO SCH (09:00)
[2021-07-13] MEDS: LEVOTHYROXINE 0.05 MG TAB PO SCH (09:22)
[2021-07-13] MEDS: GABAPENTIN 100 MG CAP PO SCH ×2 (09:22→20:54)
[2021-07-13] MEDS: ENOXAPARIN 40 MG/0.4 ML SYR SUBQ SCH (09:30)
[2021-07-13] MEDS: PHENYLEPHRINE 0.25% 1 EA SUPP RC PRN ×2 (11:19→17:07)
--- NOTE | 2021-07-13 11:38 | NUR ---
[facility]EREK PICC LINE SERVICE NOTIFIED REGARDING THE MID LINE PLACEMENT ORDER. SNOW PICC LINE RN WILL BE GIVING THE NURSE A CALL FOR ETA. PARISH ASSIGNED MADE AWARE.
[2021-07-13 12:00] VITALS: BP 132/61
[2021-07-13] MEDS: PANTOPRAZOLE 40 MG INJ VIAL IVP SCH (15:13)
[2021-07-13] MEDS: MEROPENEM 1,000 MG in NACL 0.9% 100 ML IV SCH ×2 (15:17→20:54)
--- NOTE | 2021-07-13 16:52 | NUR ---
0720 AM: PATIENT IS AAOX4 ABLE TO MAKE NEEDS KNOWN. BED IN LOW AND LOCK POSITION. BED ALARM ON. CALL LIGHT WITHIN REACH. BEDSIDE COMMODE IN PLACE. PATIENT IS NOTED TO BE NEEDY AND COMPLAINTS ABOUT EVERYTHING. CONSTANT CALLING AND WANTING SOMEONE TO ATTEND HER NEEDS EVERY MINUTE. PATIENT IS STABLE AND DOES NOT SHOW ANY DISTRESS OR PAIN. PATIENT IS ABLE TO DO ADL AT MINIMUM ASSIST OR INDEPENDENTLY BESIDE STAND BY ASSIST WHEN GETTING OUT OF BED TO USE THE BEDSIDE COMMODE. IV TO THE LEFT HAND LEAKING. ROSS CARRIER DRIVER UNABLE TO INSERT IV DUE TO PATIENT IS REFUSING. STABLE CONDITION. WILL CONT TO MONITOR. 0800 AM: EXPLAINED PLAN OF CARE AND PATIENT NEED REINFORCEMENT. IV REFUSED AT THIS TIME. EXPLAINED RISK AND BENEFITS. PATIENT WANTS TO DO IV 1 TIME ONLY AND IF UNSUCCESSFUL DOES NOT WANT IV ANYMORE. 1000AM: DR WALKER AT THE BEDSIDE AND EXPLAINED TO HER ABOUT THE IMPORTANCE OF GETTING AN IV ADN PLAN OF CARE. PATIENT DOES NOT SEEM TO LISTEN AND LIKES TO TALK OVER MD WHILE MD IS TALKING. N/O OF MIDLINE FOR IV ABT USE. 1200PM: PATIENT IS RESTING IN BED PLAYING WITH HER PHONE. STABLE CONDITION AT THIS TIME. 1400: NO CHANGE AT THIS TIME. STABLE CONDITION. 1600: NO CHANGE AT THIS TIME. STABLE CONDITION. 1630: UP IN THE BEDSIDE COMMODE. 1 LARGE FORMED BROWN BM.
--- NOTE | 2021-07-13 17:00 | NUR ---
DC PLANNING PATIENT IS A 70-YEAR-OLD FEMALE ADMITTED BY THE ED ON 07/03/2021 DUE TO ABDOMINAL PAIN. TODD MET WITH PATIENT AT BEDSIDE TO DISCUSS AND GATHER HER COLLATERAL INFORMATION. PATIENT REPORTED LIVING AT HOME WITH HER HEATHER BUSH WHO IS HAVING HEALTH ISSUES HIMSELF. PATIENT STATED SHE DO NOT HAVE ADVANCE DIRECTIVES AND WANTS TO GET THE INFORMATION PACKET PROVIDED BY TODD. PATIENT REPORTED NOT HAVING ANY ISSUES GETTING OR TAKING HER MEDICATIONS FROM THE PHARMACY NEAR HER HOME. PATIENT STATED THAT SHE HAS ONLY A CANE HER DME AT HOME; AND CONTINUES TO BE INDEPENDENT UNTIL RECENTLY SHE BECAME REALLY SICK. PATIENT REPORTED BEEN DISABLE DUE TO A DX WITH FIBROMYALGIA PATIENT REPORTED TO TODD THAT SHE WILL BE ASSISTED WITH TRANSPORTATION, AND HER WILL PICK HER UP FROM [facility] WHEN ITS TIME FOR HER DISCHARGE. PATIENT REPORTED THAT HER PCP IS PAULA MONGE AND REPORTED THAT SHE HAS TALK TO HER IN A COUPLE APPOINMENTS ON THE PHONE OVER A MONTH AGO. BUT IN PERSON SHE HAS NOT SEEN MD FOR ABOUT 6 MONTHS DUE TO COVID. TODD THANK HER FOR HER INF. AND LEFT HER ROOM. TODD WILL FOLLOW UP NEEDED.
--- NOTE | 2021-07-13 19:00 | NUR ---
0900 AM: PATIENT ATE BREAKFAST 75%. FLUID PO 240 ML. 1300: ATE LUNCH 75%. FLUID PO 480 ML 1800: ATE DINNER 75%. FLUID INTAKE 480 ML.
--- NOTE | 2021-07-13 19:30 | NUR ---
1800:PATIENT IS RESTING IN BED QUIETLY. STABLE CONDITION AT THIS TIME. WILL CONT TO MONITOR. 1845: PATIENT IS EATING HER LUNCH. NO CHANGE AT THIS TIME. WILL CONT TO MONITOR. 1930: AT THE BEDSIDE. PATIENT IS STABLE THROUGHOUT THE SHIFT. WILL CONT TO MONITOR.
--- NOTE | 2021-07-13 19:40 | NUR ---
RECEIVED BEDSIDE REPORT FROM DAY SHIFT NURSE. PATIENT IS AWAKE, ALERT, AND COOPERATIVE. AT BEDSIDE. RESPIRATION EVEN UNLABORED ON 2L NC. SKIN IS WARM AND DRY. IV PATENT AND INTACT. PLAN OF CARE DISCUSSED. ALL SAFETY MEASURES IN PLACE. BED IS AT LOW POSITION. CALL LIGHT WITHIN REACH. WILL CONTINUE TO MONITOR
[2021-07-13] MEDS: POLYETHYLENE GLYCOL 17 GM/PKT PO SCH (20:54)
--- NOTE | 2021-07-13 21:00 | NUR ---
INITIAL ASSESSMENT DONE. ALL SCHEDULED MEDS WERE GIVEN PER ORDER. WILL CONTINUE TO MONITOR.
--- NOTE | 2021-07-13 22:50 | NUR ---
ASSISTED PATIENT TO BEDSIDE COMMODE
--- NOTE | 2021-07-13 23:03 | NUR ---
PT ID BAND IS NOT SCANNING, VERIFIED WITH 2 PT IDENTIFICATION THEN MANUALLY INPUT PATIENT MRN NUMBER TO SCAN MEDS.
--- NOTE | 2021-07-13 23:30 | NUR ---
PATIENT COMPLAINED OF MILD PAIN AND DISCOMFORT FROM HER HEMORRHOIDS, PRN TYLENOL, HEMORRHOIDS CREAM AND XANAX GIVEN PER ORDER. WILL CONTINUE TO MONITOR
[2021-07-14] VITALS: BP 124/56
[2021-07-14] MEDS: SHARK OIL/PHENYLEPHRINE 60 GM TUBE TP PRN ×2 (00:18→10:49)
[2021-07-14] MEDS: ALPRAZolam 0.25 MG TAB PO PRN ×3 (00:23→18:46)
[2021-07-14] MEDS: ACETAMINOPHEN 325 MG TAB PO PRN (00:25)
--- NOTE | 2021-07-14 01:30 | NUR ---
PATIENT ASKED FOR TEA AND MILK. TEA AND MILK PROVIDED
[2021-07-14] MEDS: DEXT 5% / NACL 0.45% 1,000 ML IV SCH ×3 (01:55→17:55)
--- NOTE | 2021-07-14 04:30 | NUR ---
TRANSFERRED PATIENT TO ROOM 119A NO DISTRESS NOTED DURING TRANSFER
[2021-07-14 06:08] LABS: ANION GAP 14.9 (8-16); CARBON DIOXIDE 26.4 mmol/L (21-32); CHLORIDE 106 mmol/L (98-107); CREATININE 0.8 mg/dL (0.6-1.3); GLUCOSE 94 mg/dL (74-106); POTASSIUM 4.3 mmol/L (3.5-5.1); SODIUM SERUM 143 mmol/L (136-145); UREA NITROGEN, BLOOD 10 mg/dL (7-18)
[2021-07-14 06:15] LABS: BASOPHILS % (AUTO) 0.5 % (0.0-2.0); EOSINOPHILS # (AUTO) 0.4 K/uL (0-0.4); EOSINOPHILS % (AUTO) 4.9 % (0.0-4.0); HEMATOCRIT 32.1 % (36-48); HEMOGLOBIN 10.5 g/dL (12.0-16.0); LYMPHOCYTES # (AUTO) 2.6 K/uL (2.5-16.5); LYMPHOCYTES % (AUTO) 28.8 % (20.5-51.1); MEAN CORPUSCULAR HEMOGLOBIN 28 pg (27-31); MEAN CORPUSCULAR HGB CONC 33 g/dL (33-37); MEAN CORPUSCULAR VOLUME 86.7 fL (80-94); MONOCYTES # (AUTO) 0.6 K/uL (0.8-1.0); MONOCYTES % (AUTO) 6.7 % (1.7-9.3); NEUTROPHILS # (AUTO) 5.3 K/uL (1.8-7.7); NEUTROPHILS % (AUTO) 59.1 % (42.2-75.2); PLATELET COUNT (AUTO) 341 K/uL (140-450); RED CELL DISTRIBUTION WIDTH 16.2 % (11.6-13.7)
--- NOTE | 2021-07-14 07:24 | NUR ---
ENDORSED PATIENT TO DAY SHIFT NURSE FOR CONTINUITY OF CARE
--- NOTE | 2021-07-14 07:53 | NUR ---
PATIENT AWAKE AND ALERT. NO ACUTE DISTRESS NOTED. PATIENT ON 2L NC. PATIENT O2 SAT IS AT 94%. CALL LIGHT WITHIN REACH. SAFETY MEASURES IN PLACE. WILL CONTINUE TO MONITOR.
[2021-07-14 08:00] VITALS: BP 133/76
[2021-07-14] MEDS: ALBUTEROL SULFATE/IPRATROPIU 3 ML SOL IH SCH ×2 (08:13→19:52)
[2021-07-14] MEDS: VENLAFAXINE XR 75 MG CAPER PO SCH (09:06)
[2021-07-14] MEDS: LEVOTHYROXINE 0.05 MG TAB PO SCH (09:07)
[2021-07-14] MEDS: PANTOPRAZOLE 40 MG INJ VIAL IVP SCH (09:07)
[2021-07-14] MEDS: POLYETHYLENE GLYCOL 17 GM/PKT PO SCH ×2 (09:07→21:34)
[2021-07-14] MEDS: ENOXAPARIN 40 MG/0.4 ML SYR SUBQ SCH (09:08)
[2021-07-14] MEDS: GABAPENTIN 100 MG CAP PO SCH ×2 (09:08→21:34)
[2021-07-14] MEDS: MEROPENEM 1,000 MG in NACL 0.9% 100 ML IV SCH ×2 (09:10→21:33)
--- NOTE | 2021-07-14 09:10 | NUR ---
PATIENT AWAKE AND ALERT. NO ACUTE DISTRESS NOTED. SCHEDULED MEDIATION GIVEN. CALL LIGHT WITHIN REACH. ALL SAFETY MEASURES IN PLACE. WILL CONTINUE TO MONITOR.
--- NOTE | 2021-07-14 11:19 | NUR ---
PATIENT AWAKE AND ALERT. PATIENT COMPLAIN OF BEING ANXIOUS. PATIENT STATE THAT NO ON UNDERSTANDS HER. REASSURE PATIENT THAT WE ARE HERE TO HELP AND WANT TO BE ABLE TO DO WHATEVER WE CAN TO MAKE HER FEEL BETTER. PATIENT STATE FEELING BETTER KNOWING THAT. CALL LIGHT WITHIN REACH. ALL SAFETY MEASURES IN PLACE. WILL CONTINUE TO MONITOR
[2021-07-14] MEDS: PHENYLEPHRINE 0.25% 1 EA SUPP RC PRN ×2 (11:32→18:46)
--- NOTE | 2021-07-14 13:02 | NUR ---
07/14/21 RD FOLLOW UP COMPLETED PLEASE REFER TO NUTRITION ASSESSMENT UNDER CARE ACTIVITY FOR ESTIMATED NUTRITIONAL NEEDS. 1. CONTINUE MECHANICAL SOFT, LOW FIBER/RESIDUE, 2GM NA TOLERATED 3. RECOMMEND ENSURE 1X DAILY 5. RD TO FOLLOW-UP 3-5 DAYS, MODERATE RISK REVIEWED BY STEWART [address] RD
--- NOTE | 2021-07-14 13:28 | NUR ---
PATIENT AWAKE AND ALERT. NO ACUTE DISTRESS NOTED. AT BEDSIDE. CALL LIGHT WITHIN REACH. ALL SAFETY MEASURES IN PLACE. WILL CONTINUE TO MONITOR
--- NOTE | 2021-07-14 15:15 | NUR ---
PATIENT AWAKE AND ALERT. NO ACUTE DISTRESS NOTED. PATIENT ON ROOM AIR. O2 SAT IS 94%. CALL LIGHT WITHIN REACH. ALL SAFETY MEASURES IN PLACE. WILL CONTINUE TO MONITOR
[2021-07-14 16:00] VITALS: BP 143/75
--- NOTE | 2021-07-14 17:10 | NUR ---
PATIENT AWAKE AND ALERT. NO ACUTE DISTRESS NOTED. PATIENT ON 2 L NC. PATIENT SATING O2 AT 97%. CALL LIGHT WITHIN REACH. ALL SAFETY MEASURES IN PLACE. WILL CONTINUE TO MONITOR
--- NOTE | 2021-07-14 19:10 | NUR ---
ENDORSED TO VALIDATION SCIENTIST NURSE FOR CONTINUITY OF CARE. PATIENT STABLE.
[2021-07-15] MEDS: DEXT 5% / NACL 0.45% 1,000 ML IV SCH ×3 (01:55→18:20)
[2021-07-15] MEDS: ONDANSETRON 4 MG/2 ML VIAL IM/IVP PRN (06:46)
[2021-07-15] MEDS: ALPRAZolam 0.25 MG TAB PO PRN ×3 (06:46→23:14)
[2021-07-15 07:12] LABS: BASOPHILS # (AUTO) 0.1 K/uL (0.00-0.22); BASOPHILS % (AUTO) 0.7 % (0.0-2.0); EOSINOPHILS # (AUTO) 0.4 K/uL (0-0.4); EOSINOPHILS % (AUTO) 4.1 % (0.0-4.0); HEMATOCRIT 33.4 % (36-48); HEMOGLOBIN 10.9 g/dL (12.0-16.0); LYMPHOCYTES # (AUTO) 1.8 K/uL (2.5-16.5); MEAN CORPUSCULAR HEMOGLOBIN 29 pg (27-31); MEAN CORPUSCULAR HGB CONC 33 g/dL (33-37); MEAN CORPUSCULAR VOLUME 87.5 fL (80-94); MONOCYTES # (AUTO) 0.5 K/uL (0.8-1.0); MONOCYTES % (AUTO) 5.5 % (1.7-9.3); NEUTROPHILS # (AUTO) 6.2 K/uL (1.8-7.7); NEUTROPHILS % (AUTO) 69.7 % (42.2-75.2); PLATELET COUNT (AUTO) 356 K/uL (140-450); RED BLOOD CELL COUNT(AUTO) 3.81 MIL/uL (4.20-5.40); WHITE BLOOD COUNT (AUTO) 8.9 K/uL (4.8-10.8)
[2021-07-15 07:21] LABS: ANION GAP 12.4 (8-16); CARBON DIOXIDE 29.2 mmol/L (21-32); CHLORIDE 106 mmol/L (98-107); CREATININE 0.8 mg/dL (0.6-1.3); GLUCOSE 95 mg/dL (74-106); POTASSIUM 4.6 mmol/L (3.5-5.1); SODIUM SERUM 143 mmol/L (136-145); UREA NITROGEN, BLOOD 11 mg/dL (7-18)
--- NOTE | 2021-07-15 08:16 | NUR ---
REPORT RECEIVED FROM NIGHT NURSE PT IS SLEEPING IN THE BED AT THE MOMENT, CHEST RISE AND FALL IS VISIBLE. PT CAME FOR ABDOMINAL PAIN DX SMALL BOWEL OBSTRUCTION. HAS HX OF FIBROMYALGIA. POC DISCUSSED WILL CONTINUE TO FOLLOW.
[2021-07-15] MEDS: ENOXAPARIN 40 MG/0.4 ML SYR SUBQ SCH (09:33)
[2021-07-15] MEDS: PANTOPRAZOLE 40 MG INJ VIAL IVP SCH (09:34)
[2021-07-15] MEDS: VENLAFAXINE XR 75 MG CAPER PO SCH (09:34)
[2021-07-15] MEDS: LEVOTHYROXINE 0.05 MG TAB PO SCH (09:35)
[2021-07-15] MEDS: GABAPENTIN 100 MG CAP PO SCH ×2 (09:35→22:09)
[2021-07-15] MEDS: POLYETHYLENE GLYCOL 17 GM/PKT PO SCH ×2 (09:35→21:00)
[2021-07-15] MEDS: MEROPENEM 1,000 MG in NACL 0.9% 100 ML IV SCH ×2 (09:36→22:09)
[2021-07-15] MEDS: ALBUTEROL SULFATE/IPRATROPIU 3 ML SOL IH SCH ×3 (11:12→20:00)
[2021-07-15 16:00] VITALS: BP 120/66
--- NOTE | 2021-07-15 19:31 | NUR ---
GAVE REPORT TO NIGHT NURSE PT IS STABLE.
[2021-07-15 20:00] VITALS: BP 122/54
[2021-07-15] MEDS: ACETAMINOPHEN 325 MG TAB PO PRN (23:14)
[2021-07-16] MEDS: DEXT 5% / NACL 0.45% 1,000 ML IV SCH ×3 (01:55→18:22)
[2021-07-16 04:00] VITALS: BP 123/78
[2021-07-16 07:03] LABS: BASOPHILS # (AUTO) 0.1 K/uL (0.00-0.22); BASOPHILS % (AUTO) 0.6 % (0.0-2.0); EOSINOPHILS # (AUTO) 0.3 K/uL (0-0.4); EOSINOPHILS % (AUTO) 2.9 % (0.0-4.0); HEMATOCRIT 32.2 % (36-48); HEMOGLOBIN 10.5 g/dL (12.0-16.0); LYMPHOCYTES # (AUTO) 1.8 K/uL (2.5-16.5); LYMPHOCYTES % (AUTO) 18.9 % (20.5-51.1); MEAN CORPUSCULAR HEMOGLOBIN 29 pg (27-31); MEAN CORPUSCULAR HGB CONC 33 g/dL (33-37); MEAN CORPUSCULAR VOLUME 87.3 fL (80-94); MONOCYTES # (AUTO) 0.4 K/uL (0.8-1.0); MONOCYTES % (AUTO) 4.5 % (1.7-9.3); NEUTROPHILS # (AUTO) 7.1 K/uL (1.8-7.7); NEUTROPHILS % (AUTO) 73.1 % (42.2-75.2); PLATELET COUNT (AUTO) 392 K/uL (140-450); RED BLOOD CELL COUNT(AUTO) 3.69 MIL/uL (4.20-5.40); RED CELL DISTRIBUTION WIDTH 16.2 % (11.6-13.7); WHITE BLOOD COUNT (AUTO) 9.7 K/uL (4.8-10.8)
[2021-07-16] MEDS: ALBUTEROL SULFATE/IPRATROPIU 3 ML SOL IH SCH ×3 (07:31→20:00)
[2021-07-16 07:32] LABS: CARBON DIOXIDE 27.5 mmol/L (21-32); CHLORIDE 106 mmol/L (98-107); CREATININE 0.8 mg/dL (0.6-1.3); GLUCOSE 86 mg/dL (74-106); POTASSIUM 4.5 mmol/L (3.5-5.1); SODIUM SERUM 142 mmol/L (136-145); UREA NITROGEN, BLOOD 15 mg/dL (7-18)
--- NOTE | 2021-07-16 08:18 | NUR ---
RECEIVED REPORT FROM NIGHT NURSE PT IS IN THE BED AT THE MOMENT ALERT ORIENTED X 4 VERBALLY RESPONSIVE, DENIES PAIN AND DISCOMFORT. HAVE PICC LINE ON THE LEFT UPPER ARM. PT IS REFUSING IV FLUIDS NOT RECEIVING IV FLUIDS. POC DISCUSSED WILL CONTINUE TO FOLLOW.
[2021-07-16] MEDS: LEVOTHYROXINE 0.05 MG TAB PO SCH (09:32)
[2021-07-16] MEDS: PANTOPRAZOLE 40 MG INJ VIAL IVP SCH (09:32)
[2021-07-16] MEDS: MEROPENEM 1,000 MG in NACL 0.9% 100 ML IV SCH ×2 (09:32→21:28)
[2021-07-16] MEDS: VENLAFAXINE XR 75 MG CAPER PO SCH (09:33)
[2021-07-16] MEDS: GABAPENTIN 100 MG CAP PO SCH ×2 (09:33→21:27)
[2021-07-16] MEDS: ALPRAZolam 0.25 MG TAB PO PRN ×2 (09:34→18:36)
[2021-07-16] MEDS: POLYETHYLENE GLYCOL 17 GM/PKT PO SCH ×2 (09:35→21:00)
[2021-07-16] MEDS: ENOXAPARIN 40 MG/0.4 ML SYR SUBQ SCH (09:36)
--- NOTE | 2021-07-16 13:06 | NUR ---
PATIENT WITH LUNCH TRAY AT THIS TIME NO SOB NOTED REFUELING RAMP ATTENDANT TO ATTEMPT HHN THERAPY AT A LATER TIME
[2021-07-16 16:00] VITALS: BP 101/52
[2021-07-16] MEDS: ONDANSETRON 4 MG/2 ML VIAL IM/IVP PRN (18:35)
--- NOTE | 2021-07-16 19:26 | NUR ---
ENDORSED THE NIGHT NURSE FOR CONTINUITY OF CARE. PT IS STABLE.
[2021-07-17] MEDS: ALPRAZolam 0.25 MG TAB PO PRN ×2 (00:26→10:08)
[2021-07-17] MEDS: ACETAMINOPHEN 325 MG TAB PO PRN (00:27)
[2021-07-17] MEDS: DEXT 5% / NACL 0.45% 1,000 ML IV SCH ×2 (01:55→10:13)
[2021-07-17 04:00] VITALS: BP 99/54
[2021-07-17 06:10] LABS: BASOPHILS # (AUTO) 0.1 K/uL (0.00-0.22); BASOPHILS % (AUTO) 0.5 % (0.0-2.0); EOSINOPHILS # (AUTO) 0.3 K/uL (0-0.4); EOSINOPHILS % (AUTO) 2.7 % (0.0-4.0); HEMATOCRIT 30.5 % (36-48); HEMOGLOBIN 9.9 g/dL (12.0-16.0); LYMPHOCYTES # (AUTO) 2.8 K/uL (2.5-16.5); LYMPHOCYTES % (AUTO) 24.5 % (20.5-51.1); MEAN CORPUSCULAR HEMOGLOBIN 29 pg (27-31); MEAN CORPUSCULAR HGB CONC 33 g/dL (33-37); MEAN CORPUSCULAR VOLUME 87.7 fL (80-94); MONOCYTES # (AUTO) 0.6 K/uL (0.8-1.0); MONOCYTES % (AUTO) 5.2 % (1.7-9.3); NEUTROPHILS # (AUTO) 7.6 K/uL (1.8-7.7); NEUTROPHILS % (AUTO) 67.1 % (42.2-75.2); PLATELET COUNT (AUTO) 420 K/uL (140-450); RED BLOOD CELL COUNT(AUTO) 3.47 MIL/uL (4.20-5.40); WHITE BLOOD COUNT (AUTO) 11.3 K/uL (4.8-10.8)
[2021-07-17 06:45] LABS: ANION GAP 13.1 (8-16); CARBON DIOXIDE 26.6 mmol/L (21-32); CHLORIDE 106 mmol/L (98-107); CREATININE 0.9 mg/dL (0.6-1.3); GLUCOSE 84 mg/dL (74-106); POTASSIUM 4.7 mmol/L (3.5-5.1); SODIUM SERUM 141 mmol/L (136-145); UREA NITROGEN, BLOOD 19 mg/dL (7-18)
[2021-07-17] MEDS: ALBUTEROL SULFATE/IPRATROPIU 3 ML SOL IH SCH ×2 (07:50→13:00)
[2021-07-17 08:00] VITALS: BP 103/60
[2021-07-17] MEDS: PANTOPRAZOLE 40 MG INJ VIAL IVP SCH (09:55)
[2021-07-17] MEDS: MEROPENEM 1,000 MG in NACL 0.9% 100 ML IV SCH (09:55)
[2021-07-17] MEDS: LEVOTHYROXINE 0.05 MG TAB PO SCH (09:56)
[2021-07-17] MEDS: POLYETHYLENE GLYCOL 17 GM/PKT PO SCH (09:56)
[2021-07-17] MEDS: GABAPENTIN 100 MG CAP PO SCH (09:56)
[2021-07-17] MEDS: VENLAFAXINE XR 75 MG CAPER PO SCH (10:02)
[2021-07-17] MEDS: ENOXAPARIN 40 MG/0.4 ML SYR SUBQ SCH (10:12)
[2021-07-17] MEDS ORDERED: ALPR1TAB2 PO (10:34)
[2021-07-17] MEDS ORDERED: METR500T1 PO (10:34)
[2021-07-17] MEDS ORDERED: LEVO750T51 PO (10:34)
[2021-07-17] MEDS ORDERED: DOCU-299 PO (10:41)
--- NOTE | 2021-07-17 16:00 | NUR ---
0710 AM: PATIENT IS RESTING IN BED QUIETLY. NO ADDITIONAL DISTRESS NOTED. CALL LIGHT WITHIN REACH. BED IN LOW AND LOCK POSITION. CANE AND BEDSIDE COMMODE WITHIN REACH. STABLE CONDITION AT THIS TIME. WILL CONT TO MONITOR. 0800 AM: EXPLAINED PLAN OF CARE AND PATIENT VERBALIZED UNDERSTANDING, HOWEVER, NEED REINFORCEMENT. PATIENT IS NEEDY AND CONSTANTLY DENTAL ASSISTANT LIGHT HAVE EPISODE OF ANXIETY BUT DOES NOT ASK FOR XANAX AT THIS TIME. WILL CONT TO MONITOR. 1000 AM: PATIENT IS RESTING IN BED. WORRIED ABOUT BEING ALONE AND MIGHT DRIVE TO HIS APPOINTMENT DURING RAINY DAY (TODAY). 1008AM: GAVE XANAX ORDER FOR ANXIETY. 1200PM: PATIENT IS SITTING AT THE SIDE OF THE BED AND EATING HER LUNCH. NO ADDITIONAL DISTRESS NOTED. WILL CONT TO MONITOR. 1400: PATIENT IS RESTING IN BED TALKING TO HER ON THE PHONE. WILL CONT TO MONITOR. 1530: EXPLAINED AND GAVE DC PAPER TO PATIENT AND SHE VERBALIZED UNDERSTANDING. PER PATIENT, HER GRANDDAUGHTER WILL BE PICKING HER UP. PATIENT SEEM EXCITED TO GO HOME. WILL CONT TO MONITOR. 1535: GRANDDAUGHTER AT THE BEDSIDE AND TOOK PATIENT BELONGINGS. PER PATIENT, NO BELONGINGS WERE MISSING. MIDLINE TO THE JUDIT REMOVED. IV CATH INTACT WHEN REMOVED. PRESSURED APPLIED TO THE MIDLINE SITE. NO BLEEDING NOTED. COVER SITE WITH GAUZE AND SECURE WITH TEGADERM. 1600: PATIENT LEFT VIA W/C WHEELED OUT BY EBENEZER AVILA. PATIENT LEFT THE UNIT IN A STABLE CONDITION. NO ADDITIONAL DISTRESS NOTED.
== END 2021-07-17 15:50 | disposition home health service (06) | DRG 853 ==
LOC: MED 17:58 → MTU 22:19 → MIC 07-06 18:01 → MTU 07-08 15:00
PROVIDERS: ADMIT Family Medicine; ATTEND Family Medicine
PROC: 0DNE4ZZ Release Large Intestine, Percutaneous Endoscopic Approach (ICD-10-PCS; principal; 2021-07-06 15:00)
DX: A41.9 Sepsis, unspecified organism (principal); J96.01 Acute respiratory failure with hypoxia; J18.9 Pneumonia, unspecified organism; K56.609 Unspecified intestinal obstruction, unspecified as to partial versus complete obstruction; E87.1 Hypo-osmolality and hyponatremia; D72.829 Elevated white blood cell count, unspecified; M79.7 Fibromyalgia; F32.A Depression, unspecified; G62.9 Polyneuropathy, unspecified; G89.4 Chronic pain syndrome; E78.2 Mixed hyperlipidemia; R73.9 Hyperglycemia, unspecified; F41.9 Anxiety disorder, unspecified; Z20.822 Contact with and (suspected) exposure to COVID-19; E66.9 Obesity, unspecified; K64.9 Unspecified hemorrhoids; Z88.1 Allergy status to other antibiotic agents; Z88.0 Allergy status to penicillin; Z88.8 Allergy status to other drugs, medicaments and biological substances; Z79.899 Other long term (current) drug therapy; Z90.49 Acquired absence of other specified parts of digestive tract; Z90.710 Acquired absence of both cervix and uterus; Z88.2 Allergy status to sulfonamides; Z68.30 Body mass index [BMI] 30.0-30.9, adult
CPT/HCPCS: 36415; 71045; 74018; 74250; 80048; 80076; 80305; 81003; 82150; 83036; 83605; 83690; 83735; 83880; 84100; 84436; 84439; 84443; 84479; 84484; 85025; 85610; 85730; 87081; 94640; 94761; 96365; 96375; 96376; 97110; 97112; 97116; 97163-GP; 97530; 99285; C9113; J0690; J0692; J1100; J1170; J1650; J1885; J1940; J1956; J2001; J2060; J2185; J2270; J2405; J2704; J3010; J3490; J7030; J7060; J7120; Q0092; Q9967